=== PATIENT | female | born 1935 | race Caucasian/White ===

== ENCOUNTER 2016-11-18 11:18 | Inpatient (IN) ==
[2016-11-18] MEDS ORDERED: cefTRIAXone 1,000 MG in SODIUM CHLORIDE 0.9% 100 ML IV STA (12:04)
[2016-11-18] MEDS ORDERED: SODIUM CHLORIDE 0.9% 1,000 ML IV STA (12:04)
[2016-11-18] MEDS ORDERED: ONDANSETRON 4 MG/2 ML VIAL IV STA (12:04)
[2016-11-18] MEDS ORDERED: cefTRIAXone 1,000 MG VIAL ONE (12:10)
--- NOTE | 2016-11-18 12:36 | XRay Report ---
History: Cough and shortness of breath Date: 11/18/2016 Study: Chest x-ray AP portable Comparison exam: July 07, 2015 chest x-ray There is mild cardiomegaly. The mediastinal contours are unchanged. The pulmonary vasculature is not engorged. There is some patchy and hazy pneumonia in the right lower lung. The lungs are otherwise general clear. There is no gross pleural effusion. The osseous structures are unchanged. Impression: Right lower lung pneumonia PROCEDURE INTERPRETED AT [facility] DEPARTMENT OF RADIOLOGY Final Report Signed by: Dr. Shahla Todd
[2016-11-18] MEDS ORDERED: ONDANSETRON 4 MG/2 ML VIAL ONE (12:45)
[2016-11-18 12:53] LABS: Basophils # 0.1 10*3/uL (0.0-0.2); Basophils % 0.2 % (0.0-0.8); Eosinophils % 0.1 % (0.00-10.9); Hematocrit 45.6 VOL% (35.7-47.0); Hemoglobin 14.4 GM/DL (12.0-16.0); Immature Granulocytes % 0.6 %; Immature Granulocytes Absolute 0.19 #; Lymphocytes # 0.9 10*3/uL (1.4-4.0); Lymphocytes % 3.1 % (21.3-54.2); Mean Corpuscular HGB Conc 31.6 GM/DL (32-36); Mean Corpuscular Hemoglobin 28 PG (27-34); Mean Corpuscular Volume 87.9 FL (87-102); Monocytes # 1.5 10*3/uL (0.11-0.8); Monocytes % 4.9 % (1.7-12.7); Neutrophils # 27.4 10*3/uL (1.4-7.4); Neutrophils % 91.1 % (38.7-73.9); Platelet Count 188 T/CUMM (130-400); Red Blood Count 5.19 MC/CUMM (3.8-5.5); Red Cell Distribution Width 16.7 % (9.3-17.3); White Blood Count 30.1 T/CUMM (4-12)
[2016-11-18 13:18] LABS: Bilirubin,Total 1.2 MG/DL (0.2-1.0); Calcium 8.4 MG/DL (8.5-10.1); Osmolality,Calculated 309.3 MOS/KG (273-304); Potassium 4.9 MMOL/L (3.5-5.1); Total Protein 6.2 G/DL (6.4-8.3)
--- NOTE | 2016-11-18 13:33 | Emergency Department Note ---
INazanin Gwan, am scribing for, and in the presence of, Hussein Ramos Jr., MD 12:08. IRichard Marvin Jr., MD, personally performed the services described in this documentation, ascribed by Tameka Back in my presence, and it is both accurate and complete 238 . Arrival - Arrival Chief Complaint: Shortness of Breath Stated Complaint: C/O PRODUCTIVE COUGH WITH POSSIBLE ASPIRATION ED Nursing Triage Note: C/O PRODUCTIVE COUGH WITH POSSIBLE ASPIRATION WHILE AT CORRECTION Mode of Arrival: Stretcher Limitations: No Limitations Source: Patient, Family, Old Records Reviewed, RN Notes Reviewed - History of Present Illness HPI Narrative: Pt is a 81 y/o female who presents to the ED with a c/o N/V with an onset last night. Patient lives in a NH and is accompanied by her family. Family stated that NH staff alerted them of pt vomiting, a high temperature and a high heart rate. Today EMS was called because pt's symptoms did not get any better. EMS noted that once they got there they realized that the pt was short of breathe and there was evidence of aspiration. Family confirmed that pt has not walked in 5 years and that her speech has been slurred due to previous strokes. Patient said that her blood pressure is normally high. At time of triage, pt's blood pressure was 107/43 and her temperature was 97.6. Pt has a PMHx of CVA, NIDDM, dyslipidemia, recurring UTI, GERD and peg tube. Pt has no SHx reported. No other problems/complaints reported in ED. Onset (ago): hour(s) Consistency: constant Severity: severe Date of Last Menstrual Period: HYST Allergies/Adverse Reactions: Allergies Allergy/AdvReac Type Severity Reaction Status Date / Time codeine Allergy RASH Verified 07/07/15 15:45 Home Medications: Home Medications Medication Instructions Recorded Confirmed Type Insulin Regular, Human [NovoLIN R] See Protocol SUBCUT DAILY PRN 07/07/15 History Lisinopril [Zestril] 10 mg PEG DAILY 07/07/15 11/18/16 History Metoprolol Tartrate Tab [Lopressor 50 mg PEG BID 07/07/15 11/18/16 History Tab] Omeprazole [Prilosec] 40 mg PEG DAILY 07/07/15 11/18/16 History Ascorbic Acid Tab [Vitamin C Tab] 500 mg PEG BID 11/18/16 11/18/16 History Aspirin [Ecotrin] 81 mg PEG DAILY 11/18/16 11/18/16 History Atorvastatin [Lipitor] 10 mg PEG BEDTIME 11/18/16 11/18/16 History Docusate Sodium 100 mg PEG BEDTIME 11/18/16 11/18/16 History Insulin Detemir [Levemir] 24 unit SUBCUT DAILY 11/18/16 11/18/16 History Multivit &Minerals/Ferrous Fum 10 ml PEG DAILY 11/18/16 11/18/16 History [Multivitamin Liquid] Promethazine Inj [Phenergan Inj] 1 mg IM Q4H PRN 11/18/16 11/18/16 History Tobramycin [Tobramycin 0.3% Oph 1 drop BOTH EYES Q6H 11/18/16 11/18/16 History Soln] guaiFENesin/DM LIQUID [Robitussin 10 ml PEG Q4H PRN 11/18/16 11/18/16 History Dm] Review of System - Review of System 12 point system: reviewed and no additional remarkable complaints except as stated - Review of System Constitutional: Present: as per HPI, fever Respiratory: Present: as per HPI, cough Cardiovascular: Present: as per HPI, other (elevated heart rate) Medical,Surgical,& Family Hx - Medical History Neurology: History of: Cerebrovascular Accident Endocrine: History of: Diabetes Mellitus (NIDDM), Dyslipidemia Genitourinary: History of: Recurring Urinary Tract Infections Gastrointestinal: History of: GERD, GI Problems (PEG TUBE) - Family History Family History: Reports;: Family Cancer, Family Diabetes, Family Stroke - Social History Smoking Status: Smoker, status unknown Frequency of Alcohol Use: None Type of Drug Use: None Exam Physical Examination: General: Well-developed well-nourished, mild to moderate distress. Anxious, mildly hypotensive Head: Normocephalic, atraumatic. Eyes: PERRLA, EOMI. Nose: No obvious acute deformities or discharge. Mouth: No obvious acute injury. Neck: Full range of motion without obvious pain. No midline tender to palpation. Lymphatic: no significant lymphadenopathy noted. Lungs: Coarse breath sounds bilaterally, O2 sats low, initially 80s on room air per EMS. Heart: Tachycardia Abdomen: Soft nontender, nondistended, normal active bowel sounds. Skin: No obivous acute lesions noted Musculoskeletal: No gross deformities. Decreased muscle tone in her legs Neurological: Patient talks and will follow directions. She has got a little squeaky voice and I am not sure if this is her baseline or not. She does not move her legs Psychiatric: Anxious : Deferred Vital Signs: Vital Signs Temperature 97.6 F 11/18/16 11:20 Pulse Rate 102 H 11/18/16 11:20 Respiratory Rate 27 H 11/18/16 12:42 Blood Pressure 107/43 11/18/16 11:20 O2 Sat by Pulse Oximetry 81 L 11/18/16 11:20 Course Course Narrative: Differential diagnosis: Aspiration pneumonia, vomiting, review of past medical chart showed nothing significant that would be related to this problem. Discussion with the signs is vital in this case because patient is a poor historian. They say she has almost 0 swallowing abilities and everything that goes in her must go through her PEG tube. I discussed CODE STATUS with patient and her family and everyone agrees she is DNR. They understand what this means. - Reevaluation(s) Reevaluation #1: Patient with aspiration pneumonia, renal insufficiency, dehydration, hyperglycemia, patient needs to be admitted to the hospital and I discussed this with the hospitalist service and they accept patient for their care. They will come to the ER to admit her. I also discussed this condition and the prognosis which is not good with both the patient and her 2 sons. Time: 13:31 Results - Labs CBC & BMP: 11/18/16 12:39 11/18/16 12:39 Lab Results: I have reviewed the patients labs Labs: Laboratory Tests 11/18/16 12:39 WBC 30.1 H RBC 5.19 Hgb 14.4 Hct 45.6 MCV 87.9 MCH 28 MCHC 31.6 L RDW 16.7 Plt Count 188 MPV 11.0 Neut % (Auto) 91.1 H Lymph % (Auto) 3.1 L [place] % (Auto) 4.9 Eos % (Auto) 0.1 Baso % (Auto) 0.2 Neut # (Auto) 27.4 H Lymph # (Auto) 0.9 L [place] # (Auto) 1.5 H Eos # (Auto) 0.0 Baso # (Auto) 0.1 Immature Gran % 0.6 Nucleated RBC % 0.0 Immature Gran # 0.19 Nucleated RBCs # 0.00 Laboratory Tests 11/18/16 12:39 Sodium 141 Potassium 4.9 Chloride 99 Carbon Dioxide 31 Anion Gap 15.9 H BUN 73 H Creatinine 2.00 H GFR Calculation 23 BUN/Creatinine Ratio 36.00 H Glucose 226 H Calculated Osmolality 309.3 H Lactic Acid 2.0 Calcium 8.4 L Total Bilirubin 1.20 H AST 13 ALT 21 Alkaline Phosphatase 72 Total Protein 6.2 L Albumin 3.0 L Globulin 3.2 Albumin/Globulin Ratio 0.9 L - Diagnostic Findings Procedure: Chest x-ray: report reviewed by me, image reviewed by me (Right lower lung pneumonia. I personally reviewed this chest x-ray and agree) Disposition Clinical Impression: Aspiration pneumonia, Neutrophilia, CODE STATUS DNR, Renal insufficiency, Dehydration, Hyperglycemia, History of multiple strokes, Hypotension, Hypoxemia Case discussed with: patient, patient's family Disposition: Still a Patient Condition: Guarded Time of Disposition: 13:33
--- NOTE | 2016-11-18 14:18 | Hospitalist History & Physical ---
Assessment and Plan - Time spent with patient Time spent with patient: Greater than 30 minutes (1) Sepsis Status: Acute Assessment and plan: Patient presents with evidence of intermediate acquired pneumonia along with meeting systemic inflammatory response syndrome criteria that she has sepsis at this time. Will culture, begin empiric IV antibiotics to include Zosyn and vancomycin, obtain lactic acid, aggressively hydrate and provide pulmonary toilet. Current Visit: Yes (2) Aspiration pneumonia Status: Acute Assessment and plan: Patient likely has aspiration pneumonia. She will be covered with IV antibiotics and pulmonary toilet as noted above. Current Visit: Yes (3) Renal insufficiency Status: Acute Assessment and plan: Patient likely has acute kidney injury which appears to be secondary to volume depletion. Will hydrate aggressively overnight and follow-up renal function in the a.m. Current Visit: Yes (4) Dehydration Status: Acute Assessment and plan: Patient appears to be clinically dehydrated and has an increased BUN creatinine ratio consistent with this. Will aggressively hydrate today and follow-up renal function electrolytes in the a.m. Current Visit: Yes (5) Diabetes Status: Acute Assessment and plan: Patient has a history of diabetes mellitus type 2 requiring insulin therapy. Will continue her routine regimen with Accu-Cheks and sliding scale. Current Visit: Yes (6) Hypertension Status: Acute Assessment and plan: She is currently reluctant to fully hypotensive therefore will rehydrate and hold her antihypertensive therapy at this time. We will need to reinitiate when appropriate. Current Visit: Yes (7) PEG (percutaneous endoscopic gastrostomy) status Status: Chronic Assessment and plan: We will hold her n.p.o. for now while rehydrating and treating her pneumonia. Will likely reinitiate feedings tomorrow. Current Visit: Yes (8) CVA (cerebral vascular accident) Status: Chronic Assessment and plan: Patient has remote CVA. There is no evidence of acute issues other than her aspiration pneumonitis. We will continue her current medical regimen. Current Visit: Yes History of Present Illness Chief complaint: Congestion, fever, nausea History of present illness: Ms. Davis is a 81 year old white female resident of the intermediate, followed by Dr. Mckenzie, with a history of hypertension, diabetes mellitus, remote CVA, status post PEG tube placement who was found to have increasing chest congestion along with fever, nausea and vomiting this morning. She was brought to the emergency room and found to have pneumonia. She was relatively hypotensive and received IV antibiotics and IV fluids. She denies any chest pain, shortness of breath, abdominal pain, diarrhea, constipation, melena, hematochezia, hematemesis, dysuria, hematuria, urinary frequency urgency or incontinence, seizure or syncope. She has had a cough with some congestion for several days preceding this. Discuss resuscitation status with the patient and family and they state the desire no heroic measures such as CPR, ACLS, ventilatory support. Home Medications Medication Instructions Recorded Confirmed Type Insulin Regular, Human [NovoLIN R] See Protocol SUBCUT DAILY PRN 07/07/15 History Lisinopril [Zestril] 10 mg PEG DAILY 07/07/15 11/18/16 History Metoprolol Tartrate Tab [Lopressor 50 mg PEG BID 07/07/15 11/18/16 History Tab] Omeprazole [Prilosec] 40 mg PEG DAILY 07/07/15 11/18/16 History Ascorbic Acid Tab [Vitamin C Tab] 500 mg PEG BID 11/18/16 11/18/16 History Aspirin [Ecotrin] 81 mg PEG DAILY 11/18/16 11/18/16 History Atorvastatin [Lipitor] 10 mg PEG BEDTIME 11/18/16 11/18/16 History Docusate Sodium 100 mg PEG BEDTIME 11/18/16 11/18/16 History Insulin Detemir [Levemir] 24 unit SUBCUT DAILY 11/18/16 11/18/16 History Multivit &Minerals/Ferrous Fum 10 ml PEG DAILY 11/18/16 11/18/16 History [Multivitamin Liquid] Promethazine Inj [Phenergan Inj] 1 mg IM Q4H PRN 11/18/16 11/18/16 History Tobramycin [Tobramycin 0.3% Oph 1 drop BOTH EYES Q6H 11/18/16 11/18/16 History Soln] guaiFENesin/DM LIQUID [Robitussin 10 ml PEG Q4H PRN 11/18/16 11/18/16 History Dm] Allergies Allergy/AdvReac Type Severity Reaction Status Date / Time codeine Allergy RASH Verified 07/07/15 15:45 Medical,Surgical,& Family Hx - Medical History Cardio: History of: Hypertension Neurology: History of: Cerebrovascular Accident Endocrine: History of: Diabetes Mellitus (NIDDM), Dyslipidemia Genitourinary: History of: Recurring Urinary Tract Infections Gastrointestinal: History of: GERD, GI Problems (PEG TUBE) - Surgical History Additional Surgical History: Cataract surgery bilaterally - Family History Family History: Reports;: Family Cancer, Family Diabetes, Family Stroke - Social History Smoking Status: Former smoker Frequency of Alcohol Use: None Type of Drug Use: None Lives With:: half-way Functional capacity: bed bound 12 point system: reviewed and no additional remarkable complaints except as stated Exam - Constitutional Vitals: Period Temp Pulse Resp BP Sys/Cooper Pulse Ox Last 24 Hr 97.6 F-97.6 F 102-102 27-27 107-107/43-43 81 General appearance: no acute distress - Head Head exam: Present: normocephalic, atraumatic - Eye Eye exam: Present: EOMI Pupils: Present: KEN - ENT ENT exam: Present: normal oropharynx - Neck Neck exam: Present: normal inspection. Absent: lymphadenopathy, meningismus, tenderness, thyromegaly - Respiratory Respiratory exam: Present: rales, rhonchi. Absent: accessory muscle use, stridor, wheezes - Cardiovascular Cardiovascular exam: Present: regular rate and rhythm, tachycardia. Absent: JVD , systolic murmur - GI/Abdominal GI/Abdominal exam: Present: normal bowel sounds, soft, other (PEG tube in place) . Absent: distended, mass, tenderness, rebound - Extremities Exam Extremities exam: Absent: calf tenderness, edema - Back Exam Back exam: Present: normal inspection - Neurological Exam Neurological exam: Present: alert, oriented X3, CN II-XII intact, other (Speech mildly dysarthric, she does move all extremities to command with lower extremities being weaker than upper extremities) - Psychiatric Psychiatric exam: Present: normal affect, normal mood. Absent: agitated, anxious - Skin Skin exam: Present: warm, dry. Absent: rash Results - Labs CBC & BMP: 11/18/16 12:39 11/18/16 12:39 Lab Results: I have reviewed the past 24 hour labs - Diagnostic Findings Procedure: Chest x-ray: report reviewed by me Sepsis - Sepsis Classification of Sepsis: Sepsis - Physical Exam Respiratory exam: clear to auscultation bilaterally Capillary Refill: Less Than 3 Seconds Peripheral pulses: Radial (L): 5+, Radial (R): 5+ Cardiovascular exam: regular rate and rhythm Skin exam: normal color
[2016-11-18 14:40] LABS: Band Neutrophils 5 % (0-10); Hypochromasia Slight; Lymphocytes 2 % (20-55); Platelet Estimate Normal; Segmented Neutrophils 87 % (50-85); Total Cells Counted 100
[2016-11-18] MEDS ORDERED: ONDANSETRON 4 MG/2 ML VIAL IV PRN (16:23)
[2016-11-18] MEDS ORDERED: ALBUTEROL/IPRATROPIUM 3 ML NEB RESP TX PRN (16:23)
[2016-11-18] MEDS ORDERED: DEXTROSE 50% 25 GM/50 ML VIAL IV PRN (16:23)
[2016-11-18] MEDS ORDERED: GLUCAGON 1 MG VIAL IM PRN (16:23)
[2016-11-18] MEDS ORDERED: SODIUM CHLORIDE 0.9% 2,100 ML IV ONE (16:23)
[2016-11-18] MEDS: INSULIN LISPRO 100 UNIT/ML SUBCUT SCH (18:21)
[2016-11-18] MEDS: SODIUM CHLORIDE 0.9% 1,000 ML IV SCH (18:36)
[2016-11-18] MEDS: VANCOMYCIN INJ 1,000 MG in SODIUM CHLORIDE 0.9% 250 ML IV SCH (18:40)
[2016-11-18] MEDS: PIPERACILLIN/TAZOBACTAM 3,375 MG in SODIUM CHLORIDE 0.9% 100 ML IV SCH ×2 (18:41→23:59)
[2016-11-18] MEDS: ENOXAPARIN 30 MG/0.3 ML SYRINGE SUBCUT SCH (18:42)
[2016-11-18] MEDS: TOBRAMYCIN 0.3% OPH SOLN 5 ML BOTTLE BOTH EYES SCH ×2 (18:42→22:52)
[2016-11-18] MEDS: ALBUTEROL/IPRATROPIUM 3 ML NEB RESP TX SCH (19:34)
[2016-11-18] MEDS: ATORVASTATIN 10 MG TABLET PEG SCH (20:55)
[2016-11-18] MEDS: DOCUSATE SODIUM 100 MG CAPSULE PEG SCH (20:55)
[2016-11-18] MEDS: ASCORBIC ACID 500 MG TABLET PEG SCH (20:55)
[2016-11-19] MEDS: SODIUM CHLORIDE 0.9% 1,000 ML IV SCH ×3 (00:15→18:17)
[2016-11-19] MEDS: ALBUTEROL/IPRATROPIUM 3 ML NEB RESP TX SCH ×4 (00:15→19:48)
[2016-11-19] MEDS: INSULIN LISPRO 100 UNIT/ML SUBCUT SCH ×4 (00:24→19:26)
[2016-11-19] MEDS: TOBRAMYCIN 0.3% OPH SOLN 5 ML BOTTLE BOTH EYES SCH ×5 (04:07→23:23)
[2016-11-19 05:40] LABS: Basophils % 0.2 % (0.0-0.8); Eosinophils # 0.2 10*3/uL (0.0-0.87); Eosinophils % 0.8 % (0.00-10.9); Hematocrit 40.7 VOL% (35.7-47.0); Hemoglobin 12.4 GM/DL (12.0-16.0); Immature Granulocytes % 1.1 %; Immature Granulocytes Absolute 0.24 #; Lymphocytes % 4.8 % (21.3-54.2); Mean Corpuscular HGB Conc 30.5 GM/DL (32-36); Mean Corpuscular Hemoglobin 28 PG (27-34); Mean Corpuscular Volume 90.2 FL (87-102); Mean Platelet Volume 11.9 FL (9.6-12.0); Monocytes # 1.1 10*3/uL (0.11-0.8); Monocytes % 5.3 % (1.7-12.7); Neutrophils # 18.4 10*3/uL (1.4-7.4); Neutrophils % 87.8 % (38.7-73.9); Platelet Count 141 T/CUMM (130-400); Red Blood Count 4.51 MC/CUMM (3.8-5.5)
[2016-11-19 06:03] LABS: Band Neutrophils 9 % (0-10); Eosinophils 2 % (0-10); Hypochromasia 1+; Lymphocytes 3 % (20-55); Microcytosis 1+; Platelet Estimate Adequate; Segmented Neutrophils 76 % (50-85); Total Cells Counted 100
[2016-11-19 06:12] LABS: Calcium 8.2 MG/DL (8.5-10.1); Osmolality,Calculated 310.4 MOS/KG (273-304); Potassium 4.5 MMOL/L (3.5-5.1)
[2016-11-19] MEDS: INSULIN GLARGINE 100 UNIT/ML SUBCUT SCH (09:00)
[2016-11-19] MEDS: MULTIVITAMIN LIQUID (CENTRUM) 60 ML BOTTLE PEG SCH (09:52)
[2016-11-19] MEDS: PIPERACILLIN/TAZOBACTAM 3,375 MG in SODIUM CHLORIDE 0.9% 100 ML IV SCH ×2 (09:52→18:17)
[2016-11-19] MEDS: ASPIRIN EC 81 MG TABLET PO SCH (09:52)
[2016-11-19] MEDS: LANSOPRAZOLE ODT 30 MG TABLET PEG SCH (09:53)
[2016-11-19] MEDS: ASCORBIC ACID 500 MG TABLET PEG SCH ×2 (09:53→21:47)
--- NOTE | 2016-11-19 16:13 | Hospitalist Progress Note ---
Assessment and Plan (1) Aspiration pneumonia Status: Acute Assessment and plan: continue with IV antibitics, nebs, will consider mucomyst -will get Pulm consult place on aspiration precautions Current Visit: Yes (2) Diabetes Status: Acute Assessment and plan: Patient has a history of diabetes mellitus type 2 requiring insulin therapy. Will continue her routine regimen with Accu-Cheks and sliding scale.HbA1c level Current Visit: Yes (3) Hypertension Status: Acute Assessment and plan: She is currently hypotensive therefore will continue to rehydrate and hold her antihypertensive therapy at this time. We will need to reinitiate when appropriate. Current Visit: Yes (4) Dehydration Status: Acute Assessment and plan: improving with hydration Current Visit: Yes (5) Renal insufficiency Status: Acute Assessment and plan: Patient likely has acute kidney injury which appears to be secondary to volume depletion. Will continue to hydrate, this is improving. Current Visit: Yes (6) CVA (cerebral vascular accident) Status: Chronic Assessment and plan: Patient has remote CVA and bed- bound. There is no evidence of acute issues other than her aspiration pneumonitis. We will continue her current medical regimen. Current Visit: Yes (7) PEG (percutaneous endoscopic gastrostomy) status Status: Chronic Assessment and plan: will consider restarting feeds Current Visit: Yes Hospitalist: Subjective Interval history: Patient was seen this am, she was coughing and looked congested Exam - Constitutional Vitals: Period Temp Pulse Resp BP Sys/Cooper Pulse Ox Last 24 Hr 97.1 F-97.4 F 52-99 18-22 93-102/45-52 84-98 General appearance: mild distress - Respiratory Respiratory exam: Present: decreased breath sounds, other (congested) - Cardiovascular Cardiovascular exam: Present: regular rate and rhythm - GI/Abdominal GI/Abdominal exam: Present: normal bowel sounds - Extremities Exam Extremities exam: Present: normal inspection Results - Labs CBC & BMP: 11/19/16 04:46 11/19/16 04:46 Lab Results: I have reviewed the past 24 hour labs
[2016-11-19] MEDS: ACETYLCYSTEINE 20% 800 MG/4 ML VIAL RESP TX SCH ×2 (16:27→23:21)
[2016-11-19] MEDS: ENOXAPARIN 30 MG/0.3 ML SYRINGE SUBCUT SCH (19:27)
[2016-11-19] MEDS: ATORVASTATIN 10 MG TABLET PEG SCH (21:47)
[2016-11-19] MEDS: DOCUSATE SODIUM 100 MG CAPSULE PEG SCH (21:47)
[2016-11-20] MEDS: ACETYLCYSTEINE 20% 800 MG/4 ML VIAL RESP TX SCH ×4 (01:01→20:52)
[2016-11-20] MEDS: ALBUTEROL/IPRATROPIUM 3 ML NEB RESP TX SCH ×4 (01:01→20:52)
[2016-11-20] MEDS: INSULIN LISPRO 100 UNIT/ML SUBCUT SCH ×4 (01:39→18:09)
[2016-11-20] MEDS: PIPERACILLIN/TAZOBACTAM 3,375 MG in SODIUM CHLORIDE 0.9% 100 ML IV SCH ×3 (01:42→15:58)
[2016-11-20] MEDS: TOBRAMYCIN 0.3% OPH SOLN 5 ML BOTTLE BOTH EYES SCH ×4 (06:14→21:39)
[2016-11-20] MEDS ORDERED: VANCOMYCIN INJ 1,000 MG in SODIUM CHLORIDE 0.9% 250 ML IV SCH (06:30)
[2016-11-20] MEDS: SODIUM CHLORIDE 0.9% 1,000 ML IV SCH ×3 (06:35→16:00)
[2016-11-20] MEDS: VANCOMYCIN INJ 1,000 MG in SODIUM CHLORIDE 0.9% 250 ML IV SCH ×2 (07:09→17:30)
[2016-11-20 07:56] LABS: Calcium 8.1 MG/DL (8.5-10.1); Magnesium 2.3 MG/DL (1.8-2.4); Osmolality,Calculated 305.4 MOS/KG (273-304); Phosphorous 1.5 MG/DL (2.5-4.9); Potassium 4.5 MMOL/L (3.5-5.1)
[2016-11-20] MEDS: LANSOPRAZOLE ODT 30 MG TABLET PEG SCH (09:19)
[2016-11-20] MEDS: ASCORBIC ACID 500 MG TABLET PEG SCH ×2 (09:19→21:39)
[2016-11-20] MEDS: ASPIRIN EC 81 MG TABLET PO SCH (09:19)
[2016-11-20] MEDS: INSULIN GLARGINE 100 UNIT/ML SUBCUT SCH (09:26)
[2016-11-20] MEDS: MULTIVITAMIN LIQUID (CENTRUM) 60 ML BOTTLE PEG SCH (11:08)
--- NOTE | 2016-11-20 11:10 | Hospitalist Progress Note ---
<Reji Garcia - Last Filed: 11/20/16 11:13> Assessment and Plan (1) Aspiration pneumonia Status: Acute Assessment and plan: Continue Vancomycin as previously ordered; obtain chest-xray in AM. Current Visit: Yes (2) Dehydration Status: Acute Current Visit: Yes (3) Diabetes Status: Acute Assessment and plan: Will continue accuchecks and sliding scale coverage as previously ordered. Current Visit: Yes (4) Hypernatremia Status: Acute Assessment and plan: Mild hypernatremia noted this AM; will increase free water flushes to 100 ml every 6 hours x 24 hours. Current Visit: Yes Hospitalist: Subjective Interval history: Patient seen and examined; no significant overnight events reported. Exam - Constitutional Vitals: Period Temp Pulse Resp BP Sys/Cooper Pulse Ox Last 24 Hr 97.1 F-98.5 F 52-118 18-24 102-133/47-66 90-99 General appearance: normal weight, no acute distress - Head Head exam: Present: normal inspection - Eye Eye exam: Present: EOMI Pupils: Present: KEN - ENT ENT exam: Present: normal exam - Neck Neck exam: Present: normal inspection. Absent: lymphadenopathy, meningismus, tenderness, thyromegaly - Respiratory Respiratory exam: Present: decreased breath sounds - Cardiovascular Cardiovascular exam: Present: regular rate and rhythm. Absent: carotid bruit, diastolic murmur, gallop, rubs, systolic murmur - GI/Abdominal GI/Abdominal exam: Present: normal bowel sounds, soft - Extremities Exam Extremities exam: Present: normal inspection - Back Exam Back exam: Present: normal inspection - Neurological Exam Neurological exam: Present: alert - Psychiatric Psychiatric exam: Present: normal affect - Skin Skin exam: Present: normal color, dry Results - Labs CBC & BMP: 11/19/16 04:46 11/20/16 07:08 Lab Results: I have reviewed the past 24 hour labs <Tiara Juarez - Last Filed: 11/20/16 14:34> Assessment and Plan (1) Aspiration pneumonia Status: Acute Current Visit: Yes (2) Diabetes Status: Acute Current Visit: Yes (3) Hypertension Status: Acute Current Visit: Yes (4) Dehydration Status: Acute Current Visit: Yes (5) Renal insufficiency Status: Acute Current Visit: Yes (6) CVA (cerebral vascular accident) Status: Chronic Current Visit: Yes (7) PEG (percutaneous endoscopic gastrostomy) status Status: Chronic Current Visit: Yes Hospitalist: Subjective Interval history: Patient seen and examined. Her congestion is resolving. Exam - Constitutional Vitals: Period Temp Pulse Resp BP Sys/Cooper Pulse Ox Last 24 Hr 98.0 F-98.5 F 74-118 17-24 106-133/52-66 90-99 General appearance: no acute distress Results - Labs CBC & BMP: 11/19/16 04:46 11/20/16 07:08
[2016-11-20] MEDS: ENOXAPARIN 30 MG/0.3 ML SYRINGE SUBCUT SCH (17:29)
[2016-11-20] MEDS: DOCUSATE SODIUM 100 MG CAPSULE PEG SCH (21:39)
[2016-11-20] MEDS: ATORVASTATIN 10 MG TABLET PEG SCH (21:39)
[2016-11-21] MEDS: ACETYLCYSTEINE 20% 800 MG/4 ML VIAL RESP TX SCH ×4 (00:57→19:53)
[2016-11-21] MEDS: ALBUTEROL/IPRATROPIUM 3 ML NEB RESP TX SCH ×4 (00:57→19:53)
[2016-11-21] MEDS: PIPERACILLIN/TAZOBACTAM 3,375 MG in SODIUM CHLORIDE 0.9% 100 ML IV SCH ×4 (01:09→23:30)
[2016-11-21] MEDS: SODIUM CHLORIDE 0.9% 1,000 ML IV SCH ×2 (01:10→14:05)
[2016-11-21] MEDS: INSULIN LISPRO 100 UNIT/ML SUBCUT SCH ×4 (01:14→18:08)
[2016-11-21 06:06] LABS: Basophils % 0.2 % (0.0-0.8); Eosinophils # 0.2 10*3/uL (0.0-0.87); Eosinophils % 1.7 % (0.00-10.9); Hematocrit 42.2 VOL% (35.7-47.0); Hemoglobin 12.8 GM/DL (12.0-16.0); Immature Granulocytes % 1.4 %; Immature Granulocytes Absolute 0.18 #; Lymphocytes # 0.7 10*3/uL (1.4-4.0); Lymphocytes % 5.5 % (21.3-54.2); Mean Corpuscular HGB Conc 30.3 GM/DL (32-36); Mean Corpuscular Hemoglobin 27 PG (27-34); Mean Corpuscular Volume 90.2 FL (87-102); Mean Platelet Volume 11.1 FL (9.6-12.0); Monocytes # 0.9 10*3/uL (0.11-0.8); Monocytes % 6.5 % (1.7-12.7); Neutrophils # 11.1 10*3/uL (1.4-7.4); Neutrophils % 84.7 % (38.7-73.9); Platelet Count 174 T/CUMM (130-400); Red Blood Count 4.68 MC/CUMM (3.8-5.5); White Blood Count 13.2 T/CUMM (4-12)
[2016-11-21] MEDS: VANCOMYCIN INJ 1,000 MG in SODIUM CHLORIDE 0.9% 250 ML IV SCH ×3 (06:30→19:40)
[2016-11-21] MEDS: TOBRAMYCIN 0.3% OPH SOLN 5 ML BOTTLE BOTH EYES SCH ×4 (06:30→22:57)
[2016-11-21 06:42] LABS: Albumin 2.4 G/DL (3.4-5.0); Bilirubin,Total 1.4 MG/DL (0.2-1.0); Calcium 7.8 MG/DL (8.5-10.1); Magnesium 2.3 MG/DL (1.8-2.4); Osmolality,Calculated 301.3 MOS/KG (273-304); Phosphorous 1.1 MG/DL (2.5-4.9); Potassium 4.2 MMOL/L (3.5-5.1); Total Protein 5.7 G/DL (6.4-8.3)
[2016-11-21 06:54] LABS: Osmolality,Calculated 301.3 MOS/KG (273-304); Potassium 4.2 MMOL/L (3.5-5.1)
--- NOTE | 2016-11-21 07:49 | XRay Report ---
Portable chest Date: 11/21/2016 Clinical history: COPD Comparison: 11/18/2016 Technique: Portable AP sitting chest Findings: The heart is minimally enlarged with calcification in the aortic knob Progressive diffuse parenchymal findings with small pleural effusions. Density posterior the heart consistent with hiatal hernia. Degenerative changes are noted. Impression: Progressive bilateral pneumonia/CHF with small pleural effusions. Hiatal hernia. PROCEDURE INTERPRETED AT [facility] DEPARTMENT OF RADIOLOGY Final Report Signed by: Dr. Jill Swan
[2016-11-21] MEDS: INSULIN GLARGINE 100 UNIT/ML SUBCUT SCH (08:30)
--- NOTE | 2016-11-21 08:32 | Hospitalist Progress Note ---
<Reji Garcia - Last Filed: 11/21/16 08:29> Assessment and Plan (1) Aspiration pneumonia Status: Acute Assessment and plan: Continue Vancomycin as previously ordered; no improvement from previous CXR; will obtain new CXR in AM. Current Visit: Yes (2) Dehydration Status: Acute Current Visit: Yes (3) Diabetes Status: Acute Assessment and plan: Will continue accuchecks and sliding scale coverage as previously ordered. Current Visit: Yes (4) Hypernatremia Status: Acute Assessment and plan: Continue free water flushes to 100 ml every 6 hours. Current Visit: Yes Hospitalist: Subjective Interval history: Patient seen and examined; no significant overnight events reported per staff. Exam - Constitutional Vitals: Period Temp Pulse Resp BP Sys/Cooper Pulse Ox Last 24 Hr 97.9 F-98.9 F 71-96 17-24 108-129/56-65 92-99 General appearance: normal weight, mild distress - Head Head exam: Present: normal inspection, normocephalic, atraumatic - Eye Eye exam: Present: EOMI. Absent: periorbital swelling, scleral icterus Pupils: Present: KEN, normal accommodation - Respiratory Respiratory exam: Present: decreased breath sounds (bilaterally) - Cardiovascular Cardiovascular exam: Present: regular rate and rhythm. Absent: carotid bruit, diastolic murmur, gallop, rubs, systolic murmur - GI/Abdominal GI/Abdominal exam: Present: normal bowel sounds, soft - Extremities Exam Extremities exam: Present: normal inspection, normal capillary refill - Back Exam Back exam: Present: normal inspection - Neurological Exam Neurological exam: Present: alert, altered - Psychiatric Psychiatric exam: Present: normal affect - Skin Skin exam: Present: warm, dry, pallor Results - Labs CBC & BMP: 11/21/16 05:19 11/21/16 05:19 Lab Results: I have reviewed the past 24 hour labs <Tiara Juarez - Last Filed: 11/21/16 14:50> Assessment and Plan (1) Aspiration pneumonia Status: Acute Current Visit: Yes (2) Diabetes Status: Acute Current Visit: Yes (3) Hypertension Status: Acute Current Visit: Yes (4) Dehydration Status: Acute Current Visit: Yes (5) Renal insufficiency Status: Acute Current Visit: Yes (6) CVA (cerebral vascular accident) Status: Chronic Current Visit: Yes (7) PEG (percutaneous endoscopic gastrostomy) status Status: Chronic Current Visit: Yes Hospitalist: Subjective Interval history: Today's CXR showed progressive bilateral pneumonia/CHF with small pleural effusions. We will place on IV Lasix,repaet CXR in am. Appreciates Pulm's input. Exam - Constitutional Vitals: Period Temp Pulse Resp BP Sys/Cooper Pulse Ox Last 24 Hr 97.9 F-98.9 F 71-91 18-24 108-134/56-69 92-99 Results - Labs CBC & BMP: 11/21/16 05:19 11/21/16 05:19
[2016-11-21] MEDS ORDERED: FUROSEMIDE 40 MG/4 ML VIAL IV ONE (08:34)
[2016-11-21] MEDS: ASPIRIN EC 81 MG TABLET PO SCH (09:40)
[2016-11-21] MEDS: LANSOPRAZOLE ODT 30 MG TABLET PEG SCH (09:40)
[2016-11-21] MEDS: ASCORBIC ACID 500 MG TABLET PEG SCH ×2 (09:40→22:57)
[2016-11-21] MEDS: MULTIVITAMIN LIQUID (CENTRUM) 60 ML BOTTLE PEG SCH (09:41)
[2016-11-21] MEDS ORDERED: POTASSIUM PHOSPHATE IV ONE (12:00)
[2016-11-21] MEDS ORDERED: DEXTROSE 5% IV ONE (12:00)
[2016-11-21] MEDS ORDERED: SODIUM PHOSPHATE IV ONE (12:00)
--- NOTE | 2016-11-21 12:12 | Pulmonology Consult Note ---
Assessment and Plan (1) Aspiration pneumonia Status: Acute Assessment and plan: The patient came in with some nausea and vomiting and was felt to possibly have some aspiration. She has very mild infiltrates. Clinically she seems to be doing okay. She is not having a lot of trouble with her breathing at present. Current Visit: Yes (2) Diabetes Status: Acute Assessment and plan: Her glucose was 186 today. Current Visit: Yes (3) Hypertension Status: Acute Assessment and plan: Her blood pressure is relatively stable at present. Current Visit: Yes (4) CVA (cerebral vascular accident) Status: Chronic Assessment and plan: The patient has had a previous CVA. Current Visit: Yes (5) Sepsis Status: Acute Assessment and plan: The patient came in with hypotension and was felt to be septic early on. Her blood pressure is better and she is stable now. I will cut back on her IV fluids as she looks a little overloaded. Current Visit: Yes History of Present Illness Chief complaint: Pneumonia History of present illness: Ms. Davis is a 81 year old white female that apparently is in the snf after having a CVA. She has been getting PEG tube feedings. She also takes in orally. She was sent in because she had some nausea and vomiting and chest congestion and it was thought that she may have aspirated. She did not have much infiltrate on her chest x-ray. She has been getting antibiotics and some fluids and may be a little overloaded now. She says she feels okay and wants something to drink . She is denying shortness of breath now. She is not having any fever or chest pain now. She does have a history of diabetes and hypertension and her previous CVA. Home Medications Medication Instructions Recorded Confirmed Type Insulin Regular, Human [NovoLIN R] See Protocol SUBCUT DAILY PRN 07/07/15 History Lisinopril [Zestril] 10 mg PEG DAILY 07/07/15 11/18/16 History Metoprolol Tartrate Tab [Lopressor 50 mg PEG BID 07/07/15 11/18/16 History Tab] Omeprazole [Prilosec] 40 mg PEG DAILY 07/07/15 11/18/16 History Ascorbic Acid Tab [Vitamin C Tab] 500 mg PEG BID 11/18/16 11/18/16 History Aspirin [Ecotrin] 81 mg PEG DAILY 11/18/16 11/18/16 History Atorvastatin [Lipitor] 10 mg PEG BEDTIME 11/18/16 11/18/16 History Docusate Sodium 100 mg PEG BEDTIME 11/18/16 11/18/16 History Insulin Detemir [Levemir] 24 unit SUBCUT DAILY 11/18/16 11/18/16 History Multivit &Minerals/Ferrous Fum 10 ml PEG DAILY 11/18/16 11/18/16 History [Multivitamin Liquid] Promethazine Inj [Phenergan Inj] 1 mg IM Q4H PRN 11/18/16 11/18/16 History Tobramycin [Tobramycin 0.3% Oph 1 drop BOTH EYES Q6H 11/18/16 11/18/16 History Soln] guaiFENesin/DM LIQUID [Robitussin 10 ml PEG Q4H PRN 11/18/16 11/18/16 History Dm] Allergies Allergy/AdvReac Type Severity Reaction Status Date / Time codeine Allergy RASH Verified 07/07/15 15:45 - Constitutional Constitutional: Absent: chills, fever(s), weight loss - EENT Eyes: Absent: loss of vision Ears: Present: decreased hearing Nose, mouth and throat: Absent: dysphagia, headache(s), sore throat - Cardiovascular Cardiovascular: Present: dyspnea. Absent: chest pain at rest, edema - Respiratory Respiratory: Present: cough, dyspnea. Absent: hemoptysis, pain on inspiration, change in phlegm color - Gastrointestinal Gastrointestinal: Present: nausea, vomiting. Absent: abdominal pain, change in bowel habits, dysphagia - Genitourinary Genitourinary: Absent: dysuria, hematuria, urinary frequency - Neurological Neurological: Present: focal weakness Exam (Pulmonay) H&P - Constitutional Vitals: Period Temp Pulse Resp BP Sys/Cooper Pulse Ox Last 24 Hr 97.9 F-98.9 F 71-96 17-24 108-134/56-69 92-99 General appearance: no acute distress, over weight - Head Head exam: Present: normal inspection, normocephalic - Eye Eye exam: Present: EOMI. Absent: scleral icterus Pupils: Present: KEN - ENT ENT exam: Present: normal exam, other (She does have dry mucous membrane) - Neck Neck exam: Present: normal inspection. Absent: lymphadenopathy, thyromegaly - Respiratory Respiratory exam: Present: rhonchi, other (She has good breath sounds bilaterally and is moving air okay). Absent: accessory muscle use - Cardiovascular Cardiovascular exam: Present: regular rate and rhythm, tachycardia. Absent: systolic murmur - GI/Abdominal GI/Abdominal exam: Present: normal bowel sounds, soft. Absent: organomegaly, tenderness - Extremities Exam Extremities exam: Absent: calf tenderness, edema - Neurological Exam Neurological exam: Present: alert - Psychiatric Psychiatric exam: Present: normal affect - Skin Skin exam: Present: warm, dry Medical,Surgical,& Family Hx - Medical History Cardio: History of: Hypertension Neurology: History of: Cerebrovascular Accident Endocrine: History of: Diabetes Mellitus (NIDDM), Dyslipidemia Genitourinary: History of: Recurring Urinary Tract Infections Gastrointestinal: History of: GERD, GI Problems (PEG TUBE) - Family History Family History: Reports;: Family Cancer, Family Diabetes, Family Stroke - Social History Smoking Status: Former smoker Frequency of Alcohol Use: None Type of Drug Use: None Results - Labs CBC & BMP: 11/21/16 05:19 11/21/16 05:19 - Diagnostic Findings Procedure: Chest x-ray: image reviewed by me, report reviewed by me (Chest x- ray showed minimal right lower lobe infiltrate.)
[2016-11-21] MEDS: FUROSEMIDE 40 MG/4 ML VIAL IV SCH (15:19)
[2016-11-21] MEDS: ENOXAPARIN 40 MG/0.4 ML SYRINGE SUBCUT SCH (18:08)
[2016-11-21] MEDS: DOCUSATE SODIUM 100 MG CAPSULE PEG SCH (20:55)
[2016-11-21] MEDS: DESITIN 4OZ/NYSTATIN 15 GRAM MIXTURE PASTE TOP SCH (22:57)
[2016-11-21] MEDS: ATORVASTATIN 10 MG TABLET PEG SCH (22:57)
[2016-11-22] MEDS: ACETYLCYSTEINE 20% 800 MG/4 ML VIAL RESP TX SCH ×4 (00:07→19:01)
[2016-11-22] MEDS: ALBUTEROL/IPRATROPIUM 3 ML NEB RESP TX SCH ×4 (00:07→19:01)
[2016-11-22] MEDS: INSULIN LISPRO 100 UNIT/ML SUBCUT SCH ×4 (03:58→18:39)
[2016-11-22] MEDS: VANCOMYCIN INJ 1,000 MG in SODIUM CHLORIDE 0.9% 250 ML IV SCH ×2 (04:58→06:50)
[2016-11-22] MEDS: TOBRAMYCIN 0.3% OPH SOLN 5 ML BOTTLE BOTH EYES SCH ×4 (04:59→22:46)
[2016-11-22 06:56] LABS: Basophils % 0.2 % (0.0-0.8); Eosinophils # 0.4 10*3/uL (0.0-0.87); Eosinophils % 3.3 % (0.00-10.9); Hematocrit 41.1 VOL% (35.7-47.0); Hemoglobin 13.2 GM/DL (12.0-16.0); Immature Granulocytes % 1.6 %; Immature Granulocytes Absolute 0.21 #; Lymphocytes % 7.9 % (21.3-54.2); Mean Corpuscular HGB Conc 32.1 GM/DL (32-36); Mean Corpuscular Hemoglobin 28 PG (27-34); Mean Platelet Volume 10.5 FL (9.6-12.0); Monocytes # 0.9 10*3/uL (0.11-0.8); Monocytes % 6.6 % (1.7-12.7); Neutrophils # 10.6 10*3/uL (1.4-7.4); Neutrophils % 80.4 % (38.7-73.9); Platelet Count 198 T/CUMM (130-400); Red Blood Count 4.67 MC/CUMM (3.8-5.5); Red Cell Distribution Width 16.7 % (9.3-17.3); White Blood Count 13.2 T/CUMM (4-12)
[2016-11-22 07:31] LABS: Calcium 7.8 MG/DL (8.5-10.1); Magnesium 1.9 MG/DL (1.8-2.4); Osmolality,Calculated 293.8 MOS/KG (273-304); Phosphorous 2.3 MG/DL (2.5-4.9); Potassium 3.6 MMOL/L (3.5-5.1)
--- NOTE | 2016-11-22 08:24 | XRay Report ---
Portable chest Date: 11/22/2016 Clinical history: COPD Comparison: 11/21/2016 Technique: Portable AP sitting chest Findings: Stable cardiomegaly with uncoiling of the aorta. Skin folds limit the exam. Decreased parenchymal findings at the lung bases with smaller pleural effusions. Stable mediastinum and osseous structures. Impression: Skin folds limit evaluation of the left chest. Reduced infiltration/edema in the lower lung zones with smaller pleural effusions. PROCEDURE INTERPRETED AT [facility] DEPARTMENT OF RADIOLOGY Final Report Signed by: Dr. Jill Swan
--- NOTE | 2016-11-22 08:56 | Hospitalist Progress Note ---
<Reji Garcia - Last Filed: 11/22/16 08:57> Assessment and Plan (1) Aspiration pneumonia Status: Acute Assessment and plan: Moderate improvement from previous CXR on yesterday.Will discontinue Vancomycin and Zosyn as previously ordered; will start Levaquin and Clindamycin PO; f/u CXR in AM. Current Visit: Yes (2) Dehydration Status: Acute Assessment and plan: Continue free water flushes as previously ordered. Current Visit: Yes (3) Diabetes Status: Acute Assessment and plan: Will continue accuchecks and sliding scale coverage as previously ordered. Current Visit: Yes (4) Hypernatremia Status: Acute Assessment and plan: Sodium levels now stable at 144. Continue free water flushes to 100 ml every 6 hours. Current Visit: Yes Hospitalist: Subjective Interval history: Patient seen and evaluated. No significant overnight events reported. AM chest x -ray reveals reduced infiltration/edema in the lower lung zones with smaller pleural effusions. Will discontinue Vancomycin and Zosyn and convert to ABT per tube. We will repeat CXR in AM; and plan for possible discharge on tomorrow back to the SNF. Exam - Constitutional Vitals: Period Temp Pulse Resp BP Sys/Cooper Pulse Ox Last 24 Hr 97.5 F-99.6 F 75-102 18-20 120-155/62-73 93-99 General appearance: normal weight, no acute distress - Head Head exam: Present: normal inspection - Eye Eye exam: Present: EOMI Pupils: Present: KEN - ENT ENT exam: Present: normal exam - Neck Neck exam: Present: normal inspection. Absent: lymphadenopathy, meningismus, tenderness, thyromegaly - Respiratory Respiratory exam: Present: decreased breath sounds - Cardiovascular Cardiovascular exam: Present: regular rate and rhythm. Absent: carotid bruit, diastolic murmur, gallop, JVD, rubs, systolic murmur - GI/Abdominal GI/Abdominal exam: Present: normal bowel sounds, soft. Absent: guarding, mass, tenderness - Extremities Exam Extremities exam: Present: edema (bilateral lower extremeties) - Neurological Exam Neurological exam: Present: alert, altered - Psychiatric Psychiatric exam: Present: normal affect - Skin Skin exam: Present: warm, dry, pallor Results - Labs CBC & BMP: 11/22/16 06:37 11/22/16 06:37 Lab Results: I have reviewed the past 24 hour labs <Tiara Juarez - Last Filed: 11/22/16 13:18> Assessment and Plan (1) Aspiration pneumonia Status: Acute Current Visit: Yes (2) Diabetes Status: Acute Current Visit: Yes (3) Hypertension Status: Acute Current Visit: Yes (4) Dehydration Status: Acute Current Visit: Yes (5) Renal insufficiency Status: Acute Current Visit: Yes (6) CVA (cerebral vascular accident) Status: Chronic Current Visit: Yes (7) PEG (percutaneous endoscopic gastrostomy) status Status: Chronic Current Visit: Yes Hospitalist: Subjective Interval history: Patient was asking for water but we will give some ice-chips so she doesnt choke. Exam - Constitutional Vitals: Period Temp Pulse Resp BP Sys/Cooper Pulse Ox Last 24 Hr 97.1 F-99.6 F 74-102 18-20 120-155/62-74 92-98 Results - Labs CBC & BMP: 11/22/16 06:37 11/22/16 06:37
[2016-11-22] MEDS: ASPIRIN EC 81 MG TABLET PO SCH (09:09)
[2016-11-22] MEDS: FUROSEMIDE 40 MG/4 ML VIAL IV SCH ×2 (09:09→16:27)
[2016-11-22] MEDS: LANSOPRAZOLE ODT 30 MG TABLET PEG SCH (09:09)
[2016-11-22] MEDS: LEVOFLOXACIN 750 MG TABLET PO SCH (09:10)
[2016-11-22] MEDS: DESITIN 4OZ/NYSTATIN 15 GRAM MIXTURE PASTE TOP SCH ×2 (09:10→22:45)
[2016-11-22] MEDS: ASCORBIC ACID 500 MG TABLET PEG SCH ×2 (09:10→22:45)
[2016-11-22] MEDS: MULTIVITAMIN LIQUID (CENTRUM) 60 ML BOTTLE PEG SCH (09:24)
[2016-11-22] MEDS: INSULIN GLARGINE 100 UNIT/ML SUBCUT SCH (09:24)
[2016-11-22] MEDS: PIPERACILLIN/TAZOBACTAM 3,375 MG in SODIUM CHLORIDE 0.9% 100 ML IV SCH (09:56)
--- NOTE | 2016-11-22 10:32 | Pulmonology Progress Note ---
Pulmonary - PN: Subj Interval history: The patient is a 81-year-old white lady that is a residential patient. He has had a previous CVA with dementia. She came in with some fever and congestion and was felt to have mild aspiration pneumonia. Her chest x-ray never did show much. She says she is feeling better and not short of breath. She says she is not coughing very badly. She only wants water to drink. Otherwise she says she feels okay. Her chest x-ray today is rotated but the lung sheldon look okay. Nothing is showing up on culture. She is tolerating her tube feedings. Exam (Progress Note) - Constitutional Vitals: Period Temp Pulse Resp BP Sys/Cooper Pulse Ox Last 24 Hr 97.5 F-99.6 F 74-102 18-20 120-155/62-73 93-99 Exam: General appearance: no acute distress, over weight, she is lying in bed and looks comfortable. - Head Head exam: Present: normal inspection, normocephalic - Eye Eye exam: Present: EOMI. Absent: scleral icterus Pupils: Present: KEN - ENT ENT exam: Present: normal exam, other (She does have dry mucous membrane) - Neck Neck exam: Present: normal inspection. Absent: lymphadenopathy, thyromegaly - Respiratory Respiratory exam: Present: She has good breath sounds bilaterally is moving air fairly well. She just has minimal rhonchi now. - Cardiovascular Cardiovascular exam: Present: regular rate and rhythm. Absent: systolic murmur - GI/Abdominal GI/Abdominal exam: Present: normal bowel sounds, soft. She has a PEG tube in place. Absent: organomegaly, tenderness - Extremities Exam Extremities exam: Absent: calf tenderness, edema - Neurological Exam Neurological exam: Present: alert, she talks fairly appropriately. - Psychiatric Psychiatric exam: Present: normal affect - Skin Skin exam: Present: warm, dry Results - Labs CBC & BMP: 11/22/16 06:37 11/22/16 06:37 - Diagnostic Findings Procedure: Chest x-ray: image reviewed by me, report reviewed by me (Chest x- ray looks okay without definite consolidation.) Assessment and Plan (1) Aspiration pneumonia Status: Acute Assessment and plan: The patient came in with some nausea and vomiting and was felt to possibly have some aspiration. She has very mild infiltrates. Clinically she seems to be doing okay. Chest x-ray is stable. She looks like she is breathing comfortably. She can probably take antibiotics and go back to the residential Current Visit: Yes (2) Diabetes Status: Acute Assessment and plan: Her glucose was 179 today. Current Visit: Yes (3) Hypertension Status: Acute Assessment and plan: Her blood pressure is relatively stable at present. Current Visit: Yes (4) CVA (cerebral vascular accident) Status: Chronic Assessment and plan: The patient has had a previous CVA. She looks like she may have some dementia also. Current Visit: Yes (5) Sepsis Status: Acute Assessment and plan: The patient came in with hypotension and was felt to be septic early on. Her blood pressure is better and she is stable now. Overall she seems to be hemodynamically stable now and doing better. Current Visit: Yes
[2016-11-22] MEDS: CLINDAMYCIN 300 MG CAPSULE PO SCH ×2 (12:09→18:15)
[2016-11-22] MEDS ORDERED: SKIN HEALING OINT (AQUAPHOR) 50 GM TUBE TOP PRN (15:15)
[2016-11-22] MEDS: ENOXAPARIN 40 MG/0.4 ML SYRINGE SUBCUT SCH (16:28)
[2016-11-22] MEDS: DOCUSATE SODIUM 100 MG CAPSULE PEG SCH (22:45)
[2016-11-22] MEDS: ATORVASTATIN 10 MG TABLET PEG SCH (22:45)
[2016-11-23] MEDS: ACETYLCYSTEINE 20% 800 MG/4 ML VIAL RESP TX SCH ×2 (00:10→07:32)
[2016-11-23] MEDS: ALBUTEROL/IPRATROPIUM 3 ML NEB RESP TX SCH ×2 (00:16→07:32)
[2016-11-23] MEDS: CLINDAMYCIN 300 MG CAPSULE PO SCH ×3 (01:24→11:30)
[2016-11-23] MEDS: INSULIN LISPRO 100 UNIT/ML SUBCUT SCH ×3 (01:41→11:29)
[2016-11-23] MEDS: TOBRAMYCIN 0.3% OPH SOLN 5 ML BOTTLE BOTH EYES SCH ×2 (03:51→10:34)
--- NOTE | 2016-11-23 09:07 | Pulmonology Progress Note ---
Pulmonary - PN: Subj Interval history: The patient is a 81-year-old white lady that is a detention patient. He has had a previous CVA with dementia. She came in with some fever and congestion and was felt to have mild aspiration pneumonia. Her chest x-ray never did show much. She says she is breathing better today but now complains of nausea. She did have a large bowel movement yesterday. She denies abdominal pain. She does not feel like she is having less chest congestion now Exam (Progress Note) - Constitutional Vitals: Period Temp Pulse Resp BP Sys/Cooper Pulse Ox Last 24 Hr 97.0 F-98.9 F 70-103 18-21 104-125/50-74 91-98 Exam: General appearance: no acute distress, over weight, she is lying in bed and is complaining of nausea looks. - Head Head exam: Present: normal inspection, normocephalic - Eye Eye exam: Present: EOMI. Absent: scleral icterus Pupils: Present: KEN - ENT ENT exam: Present: normal exam, other (She does have dry mucous membrane) - Neck Neck exam: Present: normal inspection. Absent: lymphadenopathy, thyromegaly - Respiratory Respiratory exam: Present: She has good breath sounds bilaterally is moving air fairly well. Her lungs sound clear today. - Cardiovascular Cardiovascular exam: Present: regular rate and rhythm. Absent: systolic murmur - GI/Abdominal GI/Abdominal exam: Present: normal bowel sounds, soft. She has a PEG tube in place. Absent: organomegaly, tenderness - Extremities Exam Extremities exam: Absent: calf tenderness, edema - Neurological Exam Neurological exam: Present: alert, she talks fairly appropriately. - Psychiatric Psychiatric exam: Present: normal affect - Skin Skin exam: Present: warm, dry Results - Labs CBC & BMP: 11/22/16 06:37 11/22/16 06:37 Assessment and Plan (1) Aspiration pneumonia Status: Acute Assessment and plan: The patient came in with some nausea and vomiting and was felt to possibly have some aspiration. She had mild infiltrates that are better. Her breathing seems to be stable. She is having nausea again but has been tolerating tube feedings and so far she is not vomiting. She can probably go back to the detention from a pulmonary standpoint if her GI tract is doing okay. Current Visit: Yes (2) Diabetes Status: Acute Assessment and plan: Her glucose was 247 today. Current Visit: Yes (3) Hypertension Status: Acute Assessment and plan: Her blood pressure is relatively stable at present. Current Visit: Yes (4) CVA (cerebral vascular accident) Status: Chronic Assessment and plan: The patient has had a previous CVA. She looks like she may have some dementia also. She has basically bedridden but seems to be stable. Current Visit: Yes (5) Sepsis Status: Acute Assessment and plan: The patient came in with hypotension and was felt to be septic early on. Her blood pressure is better and she is stable now. Overall she seems to be hemodynamically stable now and doing better. Current Visit: Yes
[2016-11-23] MEDS: LEVOFLOXACIN 750 MG TABLET PO SCH (09:45)
[2016-11-23] MEDS: ASPIRIN EC 81 MG TABLET PO SCH (09:45)
[2016-11-23] MEDS: LANSOPRAZOLE ODT 30 MG TABLET PEG SCH (09:45)
[2016-11-23] MEDS: FUROSEMIDE 40 MG/4 ML VIAL IV SCH (09:45)
[2016-11-23] MEDS: ASCORBIC ACID 500 MG TABLET PEG SCH (09:46)
[2016-11-23] MEDS: DESITIN 4OZ/NYSTATIN 15 GRAM MIXTURE PASTE TOP SCH (09:46)
[2016-11-23] MEDS: MULTIVITAMIN LIQUID (CENTRUM) 60 ML BOTTLE PEG SCH (09:46)
[2016-11-23] MEDS: INSULIN GLARGINE 100 UNIT/ML SUBCUT SCH (09:50)
--- NOTE | 2016-11-23 10:44 | Discharge Summary ---
<Tri Garciada - Last Filed: 11/23/16 10:49> Hospital Course - Hospital Course Hospital Course: This is a poor and unfortunate 81 year-old elderly female with a extensive medical history of hypertension, diabetes mellitus, cerebral vascular accident, dysphagia, percutaneous endoscopic gastrostomy placement. The patient presented to the ED from the skilled facility in which she resides with a report of increased chest congestion, fever, nausea, and vomiting. At the time of presentation, she was noted to be hypotensive. She also was noted to have acute kidney injury as a result of volume depletion. She was given fluids, garay cultures were obtained, and empirical antibiotics were started. Chest radiograph revealed right lower lobe pneumonia. She was admitted for these findings and a pulmonary consult was requested to assist in the management of the patient. her renal function improved after gentle re-hydration. Blood cultures revealed no growth to date; her antibiotics were de-escalated. Today, her condition has improved. In my opinion, she is appropriate for discharge back to the group home facility. Diagnosis - Discharge Diagnosis (1) Aspiration pneumonia Status: Acute (2) Dehydration Status: Acute (3) Diabetes Status: Acute (4) Hypernatremia Status: Acute Discharge Plan - Discharge Data Disposition: Disch/Xfer to Snf - Discharge Medications New Clindamycin Cap [Cleocin Cap] 300 mg PO Q6HR #30 capsule Albuterol/Ipratropium Neb [Duoneb] 3 ml RESP TX RT Q6H PRN #0 PRN Reason: Shortness Of Breath/Wheezing Furosemide Tab [Lasix Tab] 20 mg PO DAILY #30 tablet Insulin Lispro [HumaLOG] See Protocol SUBCUT Q6HR unit Levofloxacin Tab [Levaquin Tab] 750 mg PO DAILY #10 tablet Skin Healing Oint (Aquaphor) [Aquaphor] 1 applic TOP PRN PRN #0 applic PRN Reason: Dry Skin Continue Omeprazole [Prilosec] 40 mg PEG DAILY Atorvastatin [Lipitor] 10 mg PEG BEDTIME Docusate Sodium 100 mg PEG BEDTIME Aspirin [Ecotrin] 81 mg PEG DAILY Multivit &Minerals/Ferrous Fum [Multivitamin Liquid] 10 ml PEG DAILY Insulin Detemir [Levemir] 24 unit SUBCUT DAILY Tobramycin [Tobramycin 0.3% Oph Soln] 1 drop BOTH EYES Q6H guaiFENesin/DM LIQUID [Robitussin Dm] 10 ml PEG Q4H PRN PRN Reason: Cough Ascorbic Acid Tab [Vitamin C Tab] 500 mg PEG BID Changed Metoprolol Tartrate Tab [Lopressor Tab] 12.5 mg PEG BID #0 Discontinued Insulin Regular, Human [NovoLIN R] See Protocol SUBCUT DAILY PRN PRN Reason: Glucose Management Lisinopril [Zestril] 10 mg PEG DAILY Promethazine Inj [Phenergan Inj] 1 mg IM Q4H PRN PRN Reason: Nausea - Follow Up or Referral - Forms/Instructions Instructions: Heart Healthy Diet (DC), Diabetic Hypoglycemia (DC), Hypotension (DC), Hypoxemia (DC) Exam - Constitutional Vitals: Period Temp Pulse Resp BP Sys/Cooper Pulse Ox Last 24 Hr 97.0 F-98.9 F 70-103 18-21 104-125/50-74 91-98 Discharge Results Procedures and tests throughout hospitalization: Pending Orders 11/26/16 04:00 Basic Metabolic Panel MOTH Magnesium MOTH Phosphorous MOTH Prealbumin MOTH Labs on day of discharge: Labs from last 24 hours 11/23/16 11/23/16 11/23/16 07:35 06:33 01:37 POC Glucose 247 H 262 H 258 H 11/22/16 11/22/16 11/22/16 18:17 11:47 09:11 POC Glucose 191 H 190 H 146 H DS: Provider Date of admission: 11/18/16 13:31 Primary care physician: . No PCP Attending physician on admission: Krysten Schultz Consults: 11/18/16 16:23 Consult to Dietitian [CONS] Routine Reason for Dietitian: TF-Initiate/Manage Consult to Pharmacy [CONS] Routine Reason for Pharmacy Consult: Dose/Manage Vancomycin 11/18/16 16:31 Consult to Dietitian [CONS] Routine Reason for Dietitian: TF-Initiate/Manage 11/18/16 17:48 Consult to Pharmacy [CONS] Routine Reason for Pharmacy Consult: Dose/Manage Vancomycin 11/18/16 17:53 Consult to Pharmacy [CONS] Routine Reason for Pharmacy Consult: Adjust Meds Renal Funct 11/19/16 16:21 Consult to Physician [CONS] Routine Comment: Consulting Provider: Cole Flores Consult to Specialist Group: Pulmonology When should Consulting Provider be notified: In am Person Notified: Dr Flores Date Notified: 11/20/16 Time Notified: 16:45 11/20/16 14:02 Consult to Physical Therapy [CONS] Routine Reason for Physical Therapy: Evaluate and Treat 11/22/16 09:04 Consult to Case Mgmt/Social Srvs [CONS] Routine Reason for Case Mgmt/Social Srvs: Rehab Other Swingbed/SNF/Skilled Nursing Consult Comment: Discharge to SNF in AM Discharging clinician: Reji Garcia CNP <Tiara Juarez - Last Filed: 11/23/16 11:23> Hospital Course - Hospital Course Hospital Course: Patient's blood pressure meds were held due to low bp and renal failure. Lopressor has been re-instated at a lower dose, low dose po lasix has also been added - Time spent with patient Time with patient DS: Greater than 30 minutes Diagnosis - Discharge Diagnosis (1) Aspiration pneumonia Status: Acute (2) Diabetes Status: Acute (3) Hypertension Status: Acute (4) Dehydration Status: Acute (5) Renal insufficiency Status: Acute (6) CVA (cerebral vascular accident) Status: Chronic (7) PEG (percutaneous endoscopic gastrostomy) status Status: Chronic Discharge Plan - Discharge Data Condition at Discharge: Stable Discharge Diet: diabetic diet - Forms/Instructions Additional Discharge Instructions: Follow with PCP in 1week Exam - Constitutional General appearance: no acute distress - Head Head exam: Present: normal inspection - Respiratory Respiratory exam: Present: clear to auscultation bilaterally - Cardiovascular Cardiovascular exam: Present: regular rate and rhythm - GI/Abdominal GI/Abdominal exam: Present: normal bowel sounds - Extremities Exam Extremities exam: Present: normal inspection DS: Provider Date of admission: 11/18/16 13:31 Her pneumonia was presumed to be aspiration in origin.
[2016-11-23 11:50] VITALS: BP 132/67
== END 2016-11-23 15:45 | disposition home or self-care (01) | DRG 871 ==
LOC: EDUNIT# → EDBD → N.ED 11:18 → SUATTDRO 13:31 → N.EDINP 13:31 → N.TELEN 16:04 → N.5E 11-19 20:53
PROVIDERS: ADMIT Hospitalist; ATTEND Internal Medicine

== ENCOUNTER 2017-12-20 09:34 | Inpatient (IN) ==
[2017-12-20] MEDS ORDERED: PANTOPRAZOLE 40 MG VIAL IV STA (10:00)
[2017-12-20] MEDS ORDERED: PANTOPRAZOLE 40 MG VIAL IV ONE (10:09)
[2017-12-20 11:11] LABS: Alanine Aminotransferase 22 U/L (13-56); Albumin 3.1 G/DL (3.4-5.0); Alkaline Phosphatase 122 U/L (45-117); Aspartate Amino Transferase 20 U/L (0-37); Blood Urea Nitrogen 48 MG/DL (7-18); Calcium 10.2 MG/DL (8.5-10.1); Glucose 374 MG/DL (74-106); Osmolality,Calculated 315.7 MOS/KG (273-304); Potassium 3.2 MMOL/L (3.5-5.1); Sodium 145 MMOL/L (136-145); Total Protein 7.9 G/DL (6.4-8.3); Troponin I Only < 0.015 NG/ML (0.00-0.045)
[2017-12-20 11:25] LABS: Basophils % 0.1 % (0.0-0.8); Eosinophils # 0.1 10*3/uL (0.0-0.87); Eosinophils % 0.4 % (0.00-10.9); Immature Granulocytes % 0.4 %; Immature Granulocytes Absolute 0.06 #; Lymphocytes # 1.4 10*3/uL (1.4-4.0); Lymphocytes % 9.5 % (21.3-54.2); Mean Corpuscular Hemoglobin 30 PG (27-34); Mean Corpuscular Volume 94.1 FL (87-102); Mean Platelet Volume 11.4 FL (9.6-12.0); Monocytes # 1.1 10*3/uL (0.11-0.8); Monocytes % 7.3 % (1.7-12.7); Neutrophils # 11.9 10*3/uL (1.4-7.4); Neutrophils % 82.3 % (38.7-73.9); Platelet Count 244 T/CUMM (130-400); Red Blood Count 6.77 MC/CUMM (3.8-5.5); Red Cell Distribution Width 17.3 % (9.3-17.3); White Blood Count 14.5 T/CUMM (4-12)
[2017-12-20 11:30] LABS: Hemoglobin 20.4 GM/DL (12.0-16.0)
[2017-12-20 11:31] LABS: Hematocrit 63.7 VOL% (35.7-47.0)
[2017-12-20 11:49] LABS: Band Neutrophils 2 % (0-10); Eosinophils 1 % (0-10); Lymphocytes 7 % (20-55); Segmented Neutrophils 86 % (50-85); Total Cells Counted 100
[2017-12-20 11:50] LABS: Giant Platelets Few; Hypochromasia 1+; Platelet Estimate Adequate
[2017-12-20] MEDS ORDERED: SODIUM CHLORIDE 0.45% 500 ML IV ONE (12:02)
[2017-12-20] MEDS ORDERED: ONDANSETRON 4 MG/2 ML VIAL IV PRN (14:02)
[2017-12-20] MEDS ORDERED: GLUCAGON 1 MG VIAL IM PRN (14:20)
[2017-12-20] MEDS ORDERED: DEXTROSE 50% 25 GM/50 ML VIAL IV PRN (14:20)
[2017-12-20] MEDS ORDERED: SODIUM PHOSPHATE ENEMA 133 ML BOTTLE RECTAL ONE (15:05)
[2017-12-20] MEDS: SODIUM CHLORIDE 0.9% 1,000 ML IV SCH (16:10)
[2017-12-20] MEDS: PIPERACILLIN/TAZOBACTAM 3,375 MG in SODIUM CHLORIDE 0.9% 100 ML IV SCH ×2 (16:13→22:37)
[2017-12-20] MEDS: INSULIN REGULAR 100 UNIT/ML SUBCUT SCH (17:52)
[2017-12-20] MEDS: CLOTRIMAZOLE 1% CREAM 15 GM TUBE TOP SCH (23:20)
[2017-12-20] MEDS: NYSTATIN POWDER 15 GM BOTTLE TOP SCH (23:20)
[2017-12-21] MEDS: INSULIN REGULAR 100 UNIT/ML SUBCUT SCH ×4 (01:20→18:43)
[2017-12-21 05:52] LABS: Basophils # 0.1 10*3/uL (0.0-0.2); Basophils % 0.7 % (0.0-0.8); Eosinophils # 0.2 10*3/uL (0.0-0.87); Hemoglobin 19.2 GM/DL (12.0-16.0); Immature Granulocytes % 0.5 %; Immature Granulocytes Absolute 0.09 #; Lymphocytes # 1.4 10*3/uL (1.4-4.0); Lymphocytes % 8.3 % (21.3-54.2); Mean Corpuscular HGB Conc 31.7 GM/DL (32-36); Mean Corpuscular Hemoglobin 31 PG (27-34); Mean Corpuscular Volume 96.3 FL (87-102); Mean Platelet Volume 11.6 FL (9.6-12.0); Monocytes # 1.2 10*3/uL (0.11-0.8); Monocytes % 7.2 % (1.7-12.7); Neutrophils # 13.5 10*3/uL (1.4-7.4); Neutrophils % 82.3 % (38.7-73.9); Platelet Count 162 T/CUMM (130-400); Red Blood Count 6.29 MC/CUMM (3.8-5.5); Red Cell Distribution Width 16.7 % (9.3-17.3); White Blood Count 16.5 T/CUMM (4-12)
[2017-12-21 05:57] LABS: Hematocrit 60.6 VOL% (35.7-47.0)
[2017-12-21 06:37] LABS: Albumin 2.6 G/DL (3.4-5.0); Bilirubin,Total 2.1 MG/DL (0.2-1.0); Calcium 8.5 MG/DL (8.5-10.1); Potassium 3.1 MMOL/L (3.5-5.1); Total Protein 5.8 G/DL (6.4-8.3)
[2017-12-21] MEDS ORDERED: DEXTROSE 5% 1,000 ML IV SCH ×2 (07:30→11:00)
[2017-12-21] MEDS: NYSTATIN POWDER 15 GM BOTTLE TOP SCH ×3 (09:50→21:30)
[2017-12-21] MEDS: PIPERACILLIN/TAZOBACTAM 3,375 MG in SODIUM CHLORIDE 0.9% 100 ML IV SCH ×3 (09:50→23:45)
[2017-12-21] MEDS: CLOTRIMAZOLE 1% CREAM 15 GM TUBE TOP SCH ×3 (09:50→21:30)
[2017-12-21] MEDS: SODIUM CHLORIDE 0.9% 1,000 ML IV SCH (09:52)
[2017-12-21] MEDS: POTASSIUM CHLORIDE INJ 30 MEQ in DEXTROSE 5% 1,000 ML IV SCH ×2 (15:00→21:30)
[2017-12-22] MEDS: INSULIN REGULAR 100 UNIT/ML SUBCUT SCH ×4 (01:12→18:56)
[2017-12-22 05:10] LABS: Basophils # 0.1 10*3/uL (0.0-0.2); Basophils % 0.5 % (0.0-0.8); Eosinophils # 0.4 10*3/uL (0.0-0.87); Eosinophils % 3.1 % (0.00-10.9); Hematocrit 50.2 VOL% (35.7-47.0); Hemoglobin 15.6 GM/DL (12.0-16.0); Immature Granulocytes Absolute 0.13 #; Lymphocytes # 1.7 10*3/uL (1.4-4.0); Lymphocytes % 12.5 % (21.3-54.2); Mean Corpuscular HGB Conc 31.1 GM/DL (32-36); Mean Corpuscular Hemoglobin 30 PG (27-34); Mean Corpuscular Volume 96.4 FL (87-102); Mean Platelet Volume 11.1 FL (9.6-12.0); Monocytes # 0.9 10*3/uL (0.11-0.8); Monocytes % 6.6 % (1.7-12.7); Neutrophils # 10.3 10*3/uL (1.4-7.4); Neutrophils % 76.3 % (38.7-73.9); Platelet Count 172 T/CUMM (130-400); Red Blood Count 5.21 MC/CUMM (3.8-5.5); Red Cell Distribution Width 15.6 % (9.3-17.3); White Blood Count 13.5 T/CUMM (4-12)
[2017-12-22 05:43] LABS: Calcium 7.9 MG/DL (8.5-10.1); Osmolality,Calculated 315.3 MOS/KG (273-304); Potassium 3.7 MMOL/L (3.5-5.1)
[2017-12-22 05:55] LABS: Albumin 2.1 G/DL (3.4-5.0); Calcium 7.9 MG/DL (8.5-10.1); Osmolality,Calculated 314.3 MOS/KG (273-304); Potassium 3.7 MMOL/L (3.5-5.1)
[2017-12-22] MEDS: POTASSIUM CHLORIDE INJ 30 MEQ in DEXTROSE 5% 1,000 ML IV SCH ×2 (06:04→13:30)
[2017-12-22] MEDS: NYSTATIN POWDER 15 GM BOTTLE TOP SCH ×3 (07:30→20:45)
[2017-12-22] MEDS: CLOTRIMAZOLE 1% CREAM 15 GM TUBE TOP SCH ×3 (07:30→20:45)
[2017-12-22] MEDS ORDERED: SODIUM PHOSPHATE INJ 15 MMOL in SODIUM CHLORIDE 0.9% 250 ML IV ONE (08:00)
[2017-12-22] MEDS: PIPERACILLIN/TAZOBACTAM 3,375 MG in SODIUM CHLORIDE 0.9% 100 ML IV SCH (09:15)
[2017-12-22] MEDS: cefTRIAXone 1,000 MG in SYRINGE 1 EACH IV SCH (15:59)
[2017-12-22] MEDS ORDERED: FUROSEMIDE 40 MG/4 ML VIAL IV ONE (17:35)
[2017-12-22] MEDS ORDERED: ALBUTEROL/IPRATROPIUM 3 ML NEB RESP TX PRN (17:35)
[2017-12-23] MEDS: INSULIN REGULAR 100 UNIT/ML SUBCUT SCH ×4 (00:42→20:02)
[2017-12-23 07:18] LABS: Calcium 8.4 MG/DL (8.5-10.1); Osmolality,Calculated 298.3 MOS/KG (273-304); Potassium 3.7 MMOL/L (3.5-5.1)
[2017-12-23] MEDS: cefTRIAXone 1,000 MG in SYRINGE 1 EACH IV SCH (09:16)
[2017-12-23] MEDS: CLOTRIMAZOLE 1% CREAM 15 GM TUBE TOP SCH ×3 (09:17→22:44)
[2017-12-23] MEDS: NYSTATIN POWDER 15 GM BOTTLE TOP SCH ×3 (09:17→22:45)
[2017-12-23] MEDS: LEVOFLOXACIN INJ 500 MG in PREMIX 1 EACH IV SCH (17:02)
[2017-12-23] MEDS: AMPICILLIN INJ 1,000 MG in SODIUM CHLORIDE 0.9% 100 ML IV SCH (17:06)
[2017-12-24] MEDS: AMPICILLIN INJ 1,000 MG in SODIUM CHLORIDE 0.9% 100 ML IV SCH ×3 (01:03→16:42)
[2017-12-24] MEDS: INSULIN REGULAR 100 UNIT/ML SUBCUT SCH ×4 (01:03→18:31)
[2017-12-24] MEDS: CLOTRIMAZOLE 1% CREAM 15 GM TUBE TOP SCH ×3 (10:00→22:20)
[2017-12-24] MEDS: NYSTATIN POWDER 15 GM BOTTLE TOP SCH ×3 (10:00→22:19)
[2017-12-24] MEDS: LEVOFLOXACIN INJ 500 MG in PREMIX 1 EACH IV SCH (22:19)
[2017-12-25] MEDS: INSULIN REGULAR 100 UNIT/ML SUBCUT SCH ×4 (00:05→18:21)
[2017-12-25] MEDS: AMPICILLIN INJ 1,000 MG in SODIUM CHLORIDE 0.9% 100 ML IV SCH ×3 (00:06→16:42)
[2017-12-25 05:21] LABS: Basophils # 0.1 10*3/uL (0.0-0.2); Basophils % 0.8 % (0.0-0.8); Eosinophils # 0.1 10*3/uL (0.0-0.87); Eosinophils % 1.2 % (0.00-10.9); Hematocrit 54.3 VOL% (35.7-47.0); Hemoglobin 17.2 GM/DL (12.0-16.0); Immature Granulocytes % 2.2 %; Immature Granulocytes Absolute 0.24 #; Lymphocytes # 1.2 10*3/uL (1.4-4.0); Lymphocytes % 11.2 % (21.3-54.2); Mean Corpuscular HGB Conc 31.7 GM/DL (32-36); Mean Corpuscular Hemoglobin 30 PG (27-34); Mean Corpuscular Volume 95.4 FL (87-102); Mean Platelet Volume 10.8 FL (9.6-12.0); Monocytes # 0.8 10*3/uL (0.11-0.8); Monocytes % 6.9 % (1.7-12.7); Neutrophils # 8.5 10*3/uL (1.4-7.4); Neutrophils % 77.7 % (38.7-73.9); Platelet Count 168 T/CUMM (130-400); Red Blood Count 5.69 MC/CUMM (3.8-5.5); White Blood Count 10.9 T/CUMM (4-12)
[2017-12-25 05:55] LABS: Potassium 3.5 MMOL/L (3.5-5.1)
[2017-12-25] MEDS: NYSTATIN POWDER 15 GM BOTTLE TOP SCH ×3 (10:01→21:47)
[2017-12-25] MEDS: CLOTRIMAZOLE 1% CREAM 15 GM TUBE TOP SCH ×3 (10:02→21:46)
[2017-12-25] MEDS: LEVOFLOXACIN INJ 500 MG in PREMIX 1 EACH IV SCH (21:38)
[2017-12-25] MEDS: METOPROLOL TARTRATE 25 MG TABLET PO SCH (21:38)
[2017-12-25] MEDS: NYSTATIN CREAM 15 GM TUBE TOP SCH (23:51)
[2017-12-26] MEDS: INSULIN REGULAR 100 UNIT/ML SUBCUT SCH ×2 (00:11→06:23)
[2017-12-26] MEDS: AMPICILLIN INJ 1,000 MG in SODIUM CHLORIDE 0.9% 100 ML IV SCH ×2 (00:11→09:30)
[2017-12-26 07:45] VITALS: BP 149/95
[2017-12-26] MEDS: NYSTATIN POWDER 15 GM BOTTLE TOP SCH (09:21)
[2017-12-26] MEDS: CLOTRIMAZOLE 1% CREAM 15 GM TUBE TOP SCH (09:21)
[2017-12-26] MEDS: NYSTATIN CREAM 15 GM TUBE TOP SCH (09:24)
[2017-12-26] MEDS: METOPROLOL TARTRATE 25 MG TABLET PO SCH (09:30)
[2017-12-26] MEDS ORDERED: AMPICILLIN 500 MG CAPSULE PEG SCH (13:00)
[2017-12-26] MEDS ORDERED: METOPROLOL TARTRATE 25 MG TABLET PEG SCH (16:00)
[2017-12-26] MEDS ORDERED: ATORVASTATIN 10 MG TABLET PEG SCH (21:00)
[2017-12-26] MEDS ORDERED: CIPROFLOXACIN 100 MG/ML 100 ML/BOTTLE PEG SCH (21:00)
[2017-12-27] MEDS ORDERED: LANSOPRAZOLE ODT 30 MG TABLET PEG SCH (06:00)
[2017-12-27] MEDS ORDERED: FUROSEMIDE 20 MG TABLET PEG SCH (06:00)
[2017-12-27] MEDS ORDERED: ASPIRIN EC 81 MG TABLET PO SCH (08:00)
[2017-12-27] MEDS ORDERED: MULTIVITAMIN LIQUID (CENTRUM) 60 ML BOTTLE PO SCH (09:00)
== END 2017-12-26 12:00 | DRG 394 ==
LOC: EDBD → EDUNIT# → N.ED 09:34 → SUATTDRO 14:25 → N.EDINP 14:25 → N.2E 14:58
PROVIDERS: ADMIT Internal Medicine Geriatric Medicine; ATTEND Internal Medicine

== ENCOUNTER 2018-02-01 06:25 | Inpatient (IN) ==
[2018-02-01] MEDS ORDERED: PANTOPRAZOLE 40 MG VIAL IV STA (07:22)
[2018-02-01 08:09] LABS: Albumin 3.2 G/DL (3.4-5.0); Bilirubin,Total 1.4 MG/DL (0.2-1.0); Calcium 9.3 MG/DL (8.5-10.1); Potassium 3.6 MMOL/L (3.5-5.1); Total Protein 7.1 G/DL (6.4-8.3)
[2018-02-01 08:12] LABS: Basophils % 0.4 % (0.0-0.8); Eosinophils # 0.3 10*3/uL (0.0-0.87); Eosinophils % 2.8 % (0.00-10.9); Hematocrit 50.8 VOL% (35.7-47.0); Hemoglobin 17.5 GM/DL (12.0-16.0); Immature Granulocytes % 0.6 %; Immature Granulocytes Absolute 0.06 #; Lymphocytes # 1.5 10*3/uL (1.4-4.0); Lymphocytes % 14.2 % (21.3-54.2); Mean Corpuscular HGB Conc 34.4 GM/DL (32-36); Mean Corpuscular Hemoglobin 31 PG (27-34); Mean Corpuscular Volume 89.8 FL (87-102); Mean Platelet Volume 10.5 FL (9.6-12.0); Monocytes # 0.7 10*3/uL (0.11-0.8); Monocytes % 6.4 % (1.7-12.7); Neutrophils # 7.7 10*3/uL (1.4-7.4); Neutrophils % 75.6 % (38.7-73.9); Platelet Count 219 T/CUMM (130-400); Red Blood Count 5.66 MC/CUMM (3.8-5.5); Red Cell Distribution Width 14.8 % (9.3-17.3); White Blood Count 10.2 T/CUMM (4-12)
[2018-02-01 08:20] LABS: Partial Thromboplastin Time 33.1 SECS (0-40)
[2018-02-01 11:27] LABS: Hypochromasia 1+; Polychromasia Slight
[2018-02-01] MEDS ORDERED: DEXTROSE 50% 25 GM/50 ML VIAL IV PRN (11:31)
[2018-02-01] MEDS ORDERED: GLUCAGON 1 MG VIAL IM PRN (11:31)
[2018-02-01] MEDS ORDERED: hydrALAZINE 20 MG/1 ML VIAL IV PRN (12:28)
[2018-02-01 12:29] LABS: Hematocrit 45.8 VOL% (35.7-47.0); Hemoglobin 15.8 GM/DL (12.0-16.0)
[2018-02-01] MEDS: INSULIN LISPRO 100 UNIT/ML SUBCUT SCH ×3 (14:44→23:47)
[2018-02-01] MEDS ORDERED: MEPERIDINE 50 MG/1 ML VIAL IV ONE (14:56)
[2018-02-01] MEDS: SODIUM CHLORIDE 0.9% 1,000 ML IV SCH (15:55)
[2018-02-01] MEDS ORDERED: MAGNESIUM CITRATE 300 ML BOTTLE PO ONE (15:59)
[2018-02-01 16:32] LABS: Apearance,Urine Slightly Hazy (Clear); Bacteria,Urine Occasional /HPF (Few); Bilirubin,Urine Negative (Negative); Blood, Urine Negative (Negative); Glucose,Urine (UA) 50 mg/dL (Negative); Ketones,Urine Negative (Negative); Nitrite,Urine Negative (Negative); Protein,Urine Negative; Urine Color Yellow (Yellow); Urine Specific Gravity 1.012 (1.001-1.035); Urine Urobilinogen < 2.0 EU/DL (0.2-1.0); WBC,Urine <1 /HPF (0-6)
[2018-02-01] MEDS ORDERED: ONDANSETRON 4 MG/2 ML VIAL IV PRN (18:45)
[2018-02-01] MEDS: DESITIN 4OZ/NYSTATIN 15 GRAM MIXTURE PASTE TOP SCH ×2 (19:08→21:19)
[2018-02-01 19:54] LABS: Hematocrit 47.4 VOL% (35.7-47.0); Hemoglobin 15.7 GM/DL (12.0-16.0)
[2018-02-01] MEDS ORDERED: ALBUTEROL/IPRATROPIUM 3 ML NEB RESP TX PRN (21:00)
[2018-02-01] MEDS: PANTOPRAZOLE 40 MG VIAL IV SCH (21:20)
[2018-02-01] MEDS: ATORVASTATIN 10 MG TABLET PEG SCH (21:20)
[2018-02-01] MEDS: MICONAZOLE 2% VAG CREAM 45 GM TUBE VAG SCH (21:20)
[2018-02-01] MEDS: DOCUSATE SODIUM 100 MG/10 ML UDCUP PEG SCH (21:20)
[2018-02-02] MEDS: FUROSEMIDE 20 MG TABLET PEG SCH (06:23)
[2018-02-02] MEDS: MULTIVITAMIN LIQUID (CENTRUM) 60 ML BOTTLE PEG SCH (06:23)
[2018-02-02] MEDS: INSULIN LISPRO 100 UNIT/ML SUBCUT SCH ×3 (06:23→18:12)
[2018-02-02 06:39] LABS: Basophils % 0.4 % (0.0-0.8); Eosinophils # 0.3 10*3/uL (0.0-0.87); Eosinophils % 2.9 % (0.00-10.9); Hematocrit 46.9 VOL% (35.7-47.0); Hemoglobin 15.9 GM/DL (12.0-16.0); Immature Granulocytes % 0.4 %; Immature Granulocytes Absolute 0.04 #; Lymphocytes # 1.4 10*3/uL (1.4-4.0); Lymphocytes % 13.4 % (21.3-54.2); Mean Corpuscular HGB Conc 33.9 GM/DL (32-36); Mean Corpuscular Hemoglobin 31 PG (27-34); Mean Corpuscular Volume 90.4 FL (87-102); Mean Platelet Volume 10.3 FL (9.6-12.0); Monocytes # 0.6 10*3/uL (0.11-0.8); Neutrophils % 76.9 % (38.7-73.9); Platelet Count 213 T/CUMM (130-400); Red Blood Count 5.19 MC/CUMM (3.8-5.5); Red Cell Distribution Width 14.6 % (9.3-17.3); White Blood Count 10.4 T/CUMM (4-12)
[2018-02-02 07:01] LABS: Albumin 2.8 G/DL (3.4-5.0); Bilirubin,Total 1.7 MG/DL (0.2-1.0); Calcium 8.7 MG/DL (8.5-10.1); Osmolality,Calculated 285.1 MOS/KG (273-304); Potassium 3.9 MMOL/L (3.5-5.1); Total Protein 6.5 G/DL (6.4-8.3)
[2018-02-02] MEDS: INSULIN GLARGINE 100 UNIT/ML SUBCUT SCH (08:12)
[2018-02-02] MEDS: METOPROLOL TARTRATE 25 MG TABLET PEG SCH ×2 (08:16→16:54)
[2018-02-02] MEDS: PANTOPRAZOLE 40 MG VIAL IV SCH ×2 (08:16→20:45)
[2018-02-02] MEDS ORDERED: cefTRIAXone 1,000 MG in SODIUM CHLORIDE 0.9% 100 ML IV SCH (13:30)
[2018-02-02] MEDS ORDERED: BISACODYL 5 MG TABLET PEG ONE (14:35)
[2018-02-02] MEDS ORDERED: LACTULOSE 20 GM/30 ML UDCUP PEG ONE (14:36)
[2018-02-02] MEDS ORDERED: MAGNESIUM HYDROXIDE SUSP 30 ML UDCUP PEG ONE (14:36)
[2018-02-02] MEDS: ZINC OXIDE 16% PASTE 57 GM TUBE TOP PRN (15:14)
[2018-02-02] MEDS: DESITIN 4OZ/NYSTATIN 15 GRAM MIXTURE PASTE TOP SCH ×2 (15:14→20:45)
[2018-02-02] MEDS: SODIUM CHLORIDE 0.9% 1,000 ML IV SCH (15:18)
[2018-02-02] MEDS: ATORVASTATIN 10 MG TABLET PEG SCH (20:45)
[2018-02-02] MEDS: MICONAZOLE 2% VAG CREAM 45 GM TUBE VAG SCH (20:45)
[2018-02-02] MEDS: DOCUSATE SODIUM 100 MG/10 ML UDCUP PEG SCH (20:45)
[2018-02-03] MEDS: INSULIN LISPRO 100 UNIT/ML SUBCUT SCH ×4 (00:43→21:04)
[2018-02-03 05:42] LABS: Basophils % 0.3 % (0.0-0.8); Eosinophils # 0.3 10*3/uL (0.0-0.87); Eosinophils % 2.6 % (0.00-10.9); Hematocrit 46.2 VOL% (35.7-47.0); Hemoglobin 15.3 GM/DL (12.0-16.0); Immature Granulocytes % 0.4 %; Immature Granulocytes Absolute 0.04 #; Lymphocytes # 1.5 10*3/uL (1.4-4.0); Lymphocytes % 13.8 % (21.3-54.2); Mean Corpuscular HGB Conc 33.1 GM/DL (32-36); Mean Corpuscular Hemoglobin 30 PG (27-34); Mean Corpuscular Volume 90.9 FL (87-102); Mean Platelet Volume 10.6 FL (9.6-12.0); Monocytes # 0.7 10*3/uL (0.11-0.8); Monocytes % 6.8 % (1.7-12.7); Neutrophils # 8.3 10*3/uL (1.4-7.4); Neutrophils % 76.1 % (38.7-73.9); Platelet Count 212 T/CUMM (130-400); Red Blood Count 5.08 MC/CUMM (3.8-5.5); Red Cell Distribution Width 14.6 % (9.3-17.3); White Blood Count 10.9 T/CUMM (4-12)
[2018-02-03] MEDS: FUROSEMIDE 20 MG TABLET PEG SCH (06:00)
[2018-02-03] MEDS: MULTIVITAMIN LIQUID (CENTRUM) 60 ML BOTTLE PEG SCH (06:00)
[2018-02-03] MEDS: SODIUM CHLORIDE 0.9% 1,000 ML IV SCH ×2 (06:00→14:13)
[2018-02-03 06:13] LABS: Calcium 8.1 MG/DL (8.5-10.1); Osmolality,Calculated 284.8 MOS/KG (273-304); Potassium 3.6 MMOL/L (3.5-5.1); Prealbumin 11.8 MG/DL (20-40)
[2018-02-03] MEDS: INSULIN GLARGINE 100 UNIT/ML SUBCUT SCH (09:55)
[2018-02-03] MEDS: METOPROLOL TARTRATE 25 MG TABLET PEG SCH ×2 (09:57→16:59)
[2018-02-03] MEDS: PANTOPRAZOLE 40 MG VIAL IV SCH ×2 (09:57→21:02)
[2018-02-03] MEDS: DESITIN 4OZ/NYSTATIN 15 GRAM MIXTURE PASTE TOP SCH ×2 (09:58→21:04)
[2018-02-03] MEDS: BISACODYL 5 MG TABLET PEG SCH ×2 (17:12→23:01)
[2018-02-03] MEDS ORDERED: POLYETHYLENE GLYCOL 3350/ELECTROLYTES 4,000 ML BOTTLE PO ONE (18:00)
[2018-02-03] MEDS ORDERED: MAGNESIUM CITRATE 300 ML BOTTLE PO ONE (21:00)
[2018-02-03] MEDS: DOCUSATE SODIUM 100 MG/10 ML UDCUP PEG SCH (21:02)
[2018-02-03] MEDS: ATORVASTATIN 10 MG TABLET PEG SCH (21:02)
[2018-02-03] MEDS: MICONAZOLE 2% VAG CREAM 45 GM TUBE VAG SCH (21:03)
[2018-02-04] MEDS: INSULIN LISPRO 100 UNIT/ML SUBCUT SCH ×4 (00:05→19:19)
[2018-02-04 05:46] LABS: Basophils % 0.3 % (0.0-0.8); Eosinophils # 0.3 10*3/uL (0.0-0.87); Eosinophils % 2.6 % (0.00-10.9); Hematocrit 49.4 VOL% (35.7-47.0); Hemoglobin 16.1 GM/DL (12.0-16.0); Immature Granulocytes % 0.4 %; Immature Granulocytes Absolute 0.04 #; Lymphocytes # 1.2 10*3/uL (1.4-4.0); Lymphocytes % 12.1 % (21.3-54.2); Mean Corpuscular HGB Conc 32.6 GM/DL (32-36); Mean Corpuscular Hemoglobin 30 PG (27-34); Mean Corpuscular Volume 93.2 FL (87-102); Mean Platelet Volume 10.6 FL (9.6-12.0); Monocytes # 0.6 10*3/uL (0.11-0.8); Monocytes % 6.1 % (1.7-12.7); Neutrophils # 7.5 10*3/uL (1.4-7.4); Neutrophils % 78.5 % (38.7-73.9); Platelet Count 234 T/CUMM (130-400); Red Cell Distribution Width 14.8 % (9.3-17.3); White Blood Count 9.6 T/CUMM (4-12)
[2018-02-04] MEDS: MULTIVITAMIN LIQUID (CENTRUM) 60 ML BOTTLE PEG SCH (06:42)
[2018-02-04] MEDS: FUROSEMIDE 20 MG TABLET PEG SCH (06:42)
[2018-02-04] MEDS: BISACODYL 5 MG TABLET PEG SCH (06:43)
[2018-02-04] MEDS: INSULIN GLARGINE 100 UNIT/ML SUBCUT SCH (08:29)
[2018-02-04] MEDS ORDERED: LIDOCAINE 2% 5 ML VIAL ONE (09:00)
[2018-02-04] MEDS ORDERED: PROPOFOL 200 MG/20 ML VIAL IV ONE (09:00)
[2018-02-04] MEDS: METOPROLOL TARTRATE 25 MG TABLET PEG SCH ×2 (09:51→16:17)
[2018-02-04] MEDS: DESITIN 4OZ/NYSTATIN 15 GRAM MIXTURE PASTE TOP SCH ×2 (10:02→22:27)
[2018-02-04] MEDS: PANTOPRAZOLE 40 MG VIAL IV SCH (11:12)
[2018-02-04] MEDS ORDERED: DEXTROSE 50% 25 GM/50 ML VIAL IV PRN (14:58)
[2018-02-04] MEDS ORDERED: GLUCAGON 1 MG VIAL IM PRN (14:58)
[2018-02-04] MEDS: SODIUM CHLORIDE 0.9% 1,000 ML IV SCH ×2 (16:06→16:17)
[2018-02-04] MEDS: ATORVASTATIN 10 MG TABLET PEG SCH (22:26)
[2018-02-04] MEDS: POLYETHYLENE GLYCOL POWDER 17 GM PACK PO SCH (22:26)
[2018-02-04] MEDS: MICONAZOLE 2% VAG CREAM 45 GM TUBE VAG SCH (22:26)
[2018-02-04] MEDS: DOCUSATE SODIUM 100 MG/10 ML UDCUP PEG SCH (22:26)
[2018-02-04] MEDS: ZINC OXIDE 16% PASTE 57 GM TUBE TOP PRN (22:27)
[2018-02-05] MEDS: INSULIN LISPRO 100 UNIT/ML SUBCUT SCH ×3 (00:11→13:16)
[2018-02-05] MEDS: FUROSEMIDE 20 MG TABLET PEG SCH (05:22)
[2018-02-05] MEDS: MULTIVITAMIN LIQUID (CENTRUM) 60 ML BOTTLE PEG SCH (05:22)
[2018-02-05 07:10] LABS: Basophils % 0.3 % (0.0-0.8); Eosinophils # 0.2 10*3/uL (0.0-0.87); Eosinophils % 1.8 % (0.00-10.9); Hematocrit 44.7 VOL% (35.7-47.0); Hemoglobin 14.9 GM/DL (12.0-16.0); Immature Granulocytes % 0.4 %; Immature Granulocytes Absolute 0.04 #; Lymphocytes # 1.1 10*3/uL (1.4-4.0); Mean Corpuscular HGB Conc 33.3 GM/DL (32-36); Mean Corpuscular Hemoglobin 31 PG (27-34); Mean Corpuscular Volume 92.5 FL (87-102); Mean Platelet Volume 10.9 FL (9.6-12.0); Monocytes # 0.7 10*3/uL (0.11-0.8); Monocytes % 7.6 % (1.7-12.7); Neutrophils # 7.7 10*3/uL (1.4-7.4); Neutrophils % 78.9 % (38.7-73.9); Platelet Count 243 T/CUMM (130-400); Red Blood Count 4.83 MC/CUMM (3.8-5.5); Red Cell Distribution Width 14.6 % (9.3-17.3); White Blood Count 9.8 T/CUMM (4-12)
[2018-02-05] MEDS ORDERED: PANTOPRAZOLE 40 MG TABLET PO SCH (09:00)
[2018-02-05] MEDS: ZINC OXIDE 16% PASTE 57 GM TUBE TOP PRN (09:16)
[2018-02-05] MEDS: POLYETHYLENE GLYCOL POWDER 17 GM PACK PO SCH (09:16)
[2018-02-05] MEDS: INSULIN GLARGINE 100 UNIT/ML SUBCUT SCH (09:16)
[2018-02-05] MEDS: METOPROLOL TARTRATE 25 MG TABLET PEG SCH (09:17)
[2018-02-05] MEDS: DESITIN 4OZ/NYSTATIN 15 GRAM MIXTURE PASTE TOP SCH (09:17)
[2018-02-05 11:33] VITALS: BP 145/62
[2018-02-05] MEDS: SODIUM CHLORIDE 0.9% 1,000 ML IV SCH (14:14)
== END 2018-02-05 13:45 | DRG 394 ==
LOC: EDBD → EDUNIT# → N.ED 06:25 → N.EDINP 08:50 → N.5E 10:00
PROVIDERS: ADMIT Internal Medicine; ATTEND Internal Medicine

== ENCOUNTER 2018-02-07 13:34 | Observation (INO) ==
[2018-02-07] MEDS ORDERED: ONDANSETRON 4 MG/2 ML VIAL IV STA (14:31)
[2018-02-07] MEDS ORDERED: PANTOPRAZOLE 40 MG VIAL IV STA (14:31)
[2018-02-07] MEDS ORDERED: SODIUM CHLORIDE 0.9% 500 ML IV STA (14:31)
[2018-02-07 15:21] LABS: Basophils % 0.3 % (0.0-0.8); Eosinophils # 0.1 10*3/uL (0.0-0.87); Hemoglobin 17.5 GM/DL (12.0-16.0); Immature Granulocytes % 0.3 %; Immature Granulocytes Absolute 0.04 #; Lymphocytes # 1.2 10*3/uL (1.4-4.0); Lymphocytes % 10.4 % (21.3-54.2); Mean Corpuscular Hemoglobin 30 PG (27-34); Mean Corpuscular Volume 90.9 FL (87-102); Mean Platelet Volume 10.4 FL (9.6-12.0); Monocytes # 0.8 10*3/uL (0.11-0.8); Neutrophils # 9.6 10*3/uL (1.4-7.4); Platelet Count 257 T/CUMM (130-400); Red Blood Count 5.83 MC/CUMM (3.8-5.5); Red Cell Distribution Width 14.3 % (9.3-17.3); White Blood Count 11.9 T/CUMM (4-12)
[2018-02-07 15:42] LABS: Albumin 3.4 G/DL (3.4-5.0); Bilirubin,Total 0.9 MG/DL (0.2-1.0); Calcium 8.9 MG/DL (8.5-10.1); Osmolality,Calculated 287.3 MOS/KG (273-304); Potassium 3.2 MMOL/L (3.5-5.1); Total Protein 6.8 G/DL (6.4-8.3)
[2018-02-07] MEDS ORDERED: ONDANSETRON 4 MG/2 ML VIAL IV PRN (16:28)
[2018-02-07] MEDS ORDERED: ALBUTEROL/IPRATROPIUM 3 ML NEB RESP TX PRN (16:29)
[2018-02-07] MEDS ORDERED: ENOXAPARIN 40 MG/0.4 ML SYRINGE SUBCUT SCH (16:30)
[2018-02-07] MEDS ORDERED: DEXTROSE 50% 25 GM/50 ML VIAL IV PRN (16:31)
[2018-02-07] MEDS ORDERED: GLUCAGON 1 MG VIAL IM PRN (16:31)
[2018-02-07 18:26] LABS: Hematocrit 50.9 VOL% (35.7-47.0); Hemoglobin 16.7 GM/DL (12.0-16.0)
[2018-02-07] MEDS: SODIUM CHLOR 0.45% KCL 20 MEQ 20 MEQ/1,000 ML BAG IV SCH (19:38)
[2018-02-07] MEDS: DOCUSATE SODIUM 100 MG CAPSULE PEG SCH (21:06)
[2018-02-07] MEDS: ATORVASTATIN 10 MG TABLET PEG SCH (21:06)
[2018-02-07] MEDS: POLYETHYLENE GLYCOL POWDER 17 GM PACK PO SCH (21:07)
[2018-02-07] MEDS: PANTOPRAZOLE 40 MG VIAL IV SCH (21:14)
[2018-02-07] MEDS: INSULIN LISPRO 100 UNIT/ML SUBCUT SCH (21:15)
[2018-02-08 01:01] LABS: Calcium 8.4 MG/DL (8.5-10.1); Osmolality,Calculated 275.7 MOS/KG (273-304); Potassium 3.1 MMOL/L (3.5-5.1)
[2018-02-08] MEDS: INSULIN LISPRO 100 UNIT/ML SUBCUT SCH ×5 (01:22→23:53)
[2018-02-08 04:36] LABS: Basophils # 0.1 10*3/uL (0.0-0.2); Basophils % 0.4 % (0.0-0.8); Eosinophils # 0.3 10*3/uL (0.0-0.87); Eosinophils % 2.2 % (0.00-10.9); Hematocrit 48.3 VOL% (35.7-47.0); Hemoglobin 16.1 GM/DL (12.0-16.0); Immature Granulocytes % 0.5 %; Immature Granulocytes Absolute 0.06 #; Lymphocytes # 1.6 10*3/uL (1.4-4.0); Lymphocytes % 12.3 % (21.3-54.2); Mean Corpuscular HGB Conc 33.3 GM/DL (32-36); Mean Corpuscular Hemoglobin 30 PG (27-34); Mean Corpuscular Volume 90.6 FL (87-102); Monocytes % 7.6 % (1.7-12.7); Neutrophils # 9.8 10*3/uL (1.4-7.4); Platelet Count 229 T/CUMM (130-400); Red Blood Count 5.33 MC/CUMM (3.8-5.5); Red Cell Distribution Width 14.4 % (9.3-17.3); White Blood Count 12.8 T/CUMM (4-12)
[2018-02-08] MEDS ORDERED: MULTIVITAMIN (CENTRUM) TABLET PEG SCH (06:00)
[2018-02-08] MEDS ORDERED: FUROSEMIDE 20 MG TABLET PEG SCH (06:00)
[2018-02-08] MEDS ORDERED: NON-FORMULARY MEDICATION (Pantoprazole Sodium [Protonix] 40 MG) PEG SCH (09:00)
[2018-02-08] MEDS: METOPROLOL TARTRATE 25 MG TABLET PEG SCH ×3 (09:28→16:23)
[2018-02-08] MEDS: SODIUM CHLOR 0.45% KCL 20 MEQ 20 MEQ/1,000 ML BAG IV SCH ×2 (09:28→09:30)
[2018-02-08] MEDS: ASPIRIN EC 81 MG TABLET PO SCH (09:29)
[2018-02-08] MEDS: PANTOPRAZOLE 40 MG VIAL IV SCH ×2 (09:29→22:43)
[2018-02-08] MEDS: POLYETHYLENE GLYCOL POWDER 17 GM PACK PO SCH ×2 (09:29→22:42)
[2018-02-08] MEDS: INSULIN GLARGINE 100 UNIT/ML SUBCUT SCH (09:29)
[2018-02-08] MEDS: POTASSIUM CHLORIDE 20 MEQ TABLET PO SCH ×2 (12:08→16:23)
[2018-02-08] MEDS: ATORVASTATIN 10 MG TABLET PEG SCH (22:42)
[2018-02-08] MEDS: DOCUSATE SODIUM 100 MG CAPSULE PEG SCH (22:42)
[2018-02-09 07:04] LABS: Calcium 8.5 MG/DL (8.5-10.1); Osmolality,Calculated 282.3 MOS/KG (273-304); Potassium 3.7 MMOL/L (3.5-5.1)
[2018-02-09] MEDS: INSULIN LISPRO 100 UNIT/ML SUBCUT SCH (07:05)
[2018-02-09 07:52] VITALS: BP 132/74
[2018-02-09 08:23] LABS: Basophils % 0.4 % (0.0-0.8); Eosinophils # 0.3 10*3/uL (0.0-0.87); Eosinophils % 2.4 % (0.00-10.9); Hematocrit 45.8 VOL% (35.7-47.0); Hemoglobin 14.6 GM/DL (12.0-16.0); Immature Granulocytes % 0.3 %; Immature Granulocytes Absolute 0.03 #; Lymphocytes # 1.1 10*3/uL (1.4-4.0); Lymphocytes % 10.4 % (21.3-54.2); Mean Corpuscular HGB Conc 31.9 GM/DL (32-36); Mean Corpuscular Hemoglobin 30 PG (27-34); Mean Corpuscular Volume 93.5 FL (87-102); Mean Platelet Volume 10.7 FL (9.6-12.0); Monocytes # 0.7 10*3/uL (0.11-0.8); Monocytes % 6.7 % (1.7-12.7); Neutrophils # 8.5 10*3/uL (1.4-7.4); Neutrophils % 79.8 % (38.7-73.9); Platelet Count 231 T/CUMM (130-400); Red Cell Distribution Width 14.2 % (9.3-17.3); White Blood Count 10.7 T/CUMM (4-12)
[2018-02-09] MEDS ORDERED: FUROSEMIDE 20 MG TABLET PEG SCH (09:00)
[2018-02-09] MEDS ORDERED: MULTIVITAMIN (CENTRUM) TABLET PEG SCH ×2 (09:00→09:30)
[2018-02-09] MEDS: INSULIN GLARGINE 100 UNIT/ML SUBCUT SCH (09:07)
[2018-02-09] MEDS: METOPROLOL TARTRATE 25 MG TABLET PEG SCH (09:08)
[2018-02-09] MEDS: POTASSIUM CHLORIDE 20 MEQ TABLET PO SCH (09:09)
[2018-02-09] MEDS: ASPIRIN EC 81 MG TABLET PO SCH (09:09)
[2018-02-09] MEDS: POLYETHYLENE GLYCOL POWDER 17 GM PACK PO SCH (09:10)
[2018-02-09] MEDS: PANTOPRAZOLE 40 MG VIAL IV SCH (09:11)
[2018-02-09] MEDS ORDERED: DESITIN 4OZ/NYSTATIN 15 GRAM MIXTURE PASTE TOP SCH (15:00)
== END 2018-02-09 11:31 ==
LOC: EDUNIT# → EDBD → N.EDINP 13:34 → N.ED 13:34 → N.2E 19:55